=== PATIENT | male | born 1955 | race Caucasian/White ===

== ENCOUNTER 2017-07-22 12:14 | Emergency (ER) | payer MEDICARE ==
[~2017-07-22] VITALS: Ht 188 cm; Wt 111.1 kg
[~2017-07-22 12:14] MED LIST: ALBU8.5H8 INH; ASPI-496 PO; ASPI-621 PO; ASPI-650 PO; ASPI500P3 PO; AZIT500T5 PO; CEFD300C37 PO; DILT30TA33 PO; FLUT1DIS3 INH; METO25TA35 PO; NICO-486 TD; OXYC-302 PO; POLY119P4 PO; PRED10TA PO; PRED20TA PO; TIOT18CA INH
[2017-07-22] MEDS ORDERED: SODIUM CHLORIDE 0.9% 1,000 ML IV ONE (12:15)
[2017-07-22] MEDS ORDERED: METOPROLOL 1 MG/ML, 5ML IVPush PRN (12:30)
[2017-07-22] MEDS ORDERED: SODIUM CHLORIDE 0.9% 1,000ML IVBOLUS ONE (12:30)
[2017-07-22] MEDS ORDERED: SODIUM CHLORIDE FLUSH 10ML SYR IVF ONE (12:30)
[2017-07-22] MEDS ORDERED: PLEASE ENTER HEIGHT AND WEIGHT MC SCH (12:30)
[2017-07-22] MEDS ORDERED: METOPROLOL 1 MG/ML, 5ML ONE (12:37)
[2017-07-22 12:41] LABS: BASOPHILS # (AUTO) 0.04 x10^3/uL (0-0.1); BASOPHILS % (AUTO) 1 % (0-1); EOSINOPHILS # (AUTO) 0.18 x10^3/uL (0-0.4); EOSINOPHILS % (AUTO) 3 % (1-7); LYMPHOCYTES # (AUTO) 1.88 x10^3/uL (1-3.4); LYMPHOCYTES % (AUTO) 33 % (22-44); MD NO; MEAN CORPUSCULAR HEMOGLOBIN 29.5 pg (27.5-34.5); MEAN CORPUSCULAR HGB CONC 33.4 g/dL (33.2-36.2); MEAN CORPUSCULAR VOLUME 88.4 fL (81-97); MEAN PLATELET VOLUME 7.8 fL (7.4-10.4); MONOCYTES # (AUTO) 0.44 x10^3/uL (0.2-0.8); MONOCYTES % (AUTO) 8 % (2-9); NEUTROPHILS # (AUTO) 3.09 x10^3/uL (1.8-6.8); NEUTROPHILS % (AUTO) 55 % (42-75); PLATELET COUNT 230 x10^3/uL (130-400); RED BLOOD COUNT 5.09 x10^6/uL (4.38-5.82); RED CELL DISTRIBUTION WIDTH 14.6 % (9.4-14.8)
[2017-07-22 12:49] LABS: INTERNATIONAL NORMALIZED RATIO 1.03 (0.93-1.1); PROTHROMBIN TIME 10.7 Seconds (9.6-11.5)
[2017-07-22 12:52] LABS: ALBUMIN 3.8 g/dL (3.4-5.0); ANION GAP 8 mmol/L (5-15); CALCIUM 9.1 mg/dL (8.5-10.1); CHLORIDE 109 mmol/L (98-107); CREATININE 0.88 mg/dL (0.7-1.3)
[2017-07-22 12:57] LABS: TROPONIN I 0.016 ng/mL (0.000-0.045)
[2017-07-22 15:01] VITALS: BP 146/78
== END 2017-07-22 15:05 | disposition left against medical advice (07) ==
LOC: ED 14:59
DX: R07.2 Precordial pain (principal); I48.91 Unspecified atrial fibrillation; J44.9 Chronic obstructive pulmonary disease, unspecified; Z90.49 Acquired absence of other specified parts of digestive tract; I11.0 Hypertensive heart disease with heart failure; I50.9 Heart failure, unspecified; I25.2 Old myocardial infarction
CPT/HCPCS: 36415; 71045; 80048; 82040; 83880; 84484; 85025; 85610; 85730; 93005; 99285; J7030

== ENCOUNTER 2017-08-28 01:29 | Emergency (ER) | payer SELFPAY ==
[~2017-08-28] VITALS: Ht 188 cm; Wt 106.2 kg
[~2017-08-28 01:29] MED LIST changes: +ASPI-515 PO
[2017-08-28 01:30] VITALS: BP 167/85
== END 2017-08-28 03:40 | disposition home or self-care (01) ==
LOC: ED 01:42
DX: M25.571 Pain in right ankle and joints of right foot (principal); I50.9 Heart failure, unspecified; I25.2 Old myocardial infarction; J44.9 Chronic obstructive pulmonary disease, unspecified; I11.0 Hypertensive heart disease with heart failure; I25.10 Atherosclerotic heart disease of native coronary artery without angina pectoris; I48.91 Unspecified atrial fibrillation
CPT/HCPCS: 99284

== ENCOUNTER 2017-10-17 09:47 | Observation (INO) | payer MEDICARE ==
[~2017-10-17] VITALS: Ht 182.9 cm; Wt 108.9 kg
[2017-10-17] MEDS ORDERED: MIDAZOLAM 1 MG/ML, 5ML ONE (09:50)
[2017-10-17] MEDS ORDERED: SODIUM CHLORIDE FLUSH 10ML SYR IVF ONE (10:00)
[2017-10-17] MEDS ORDERED: NITROGLYCERIN SINGLE TAB 0.4 MG SL PRN (10:00)
[2017-10-17 10:17] LABS: BASOPHILS # (AUTO) 0.05 x10^3/uL (0-0.1); BASOPHILS % (AUTO) 1 % (0-1); EOSINOPHILS % (AUTO) 2 % (1-7); LYMPHOCYTES # (AUTO) 2.49 x10^3/uL (1-3.4); LYMPHOCYTES % (AUTO) 44 % (22-44); MD NO; MEAN CORPUSCULAR HEMOGLOBIN 30.1 pg (27.5-34.5); MEAN CORPUSCULAR HGB CONC 34.4 g/dL (33.2-36.2); MEAN CORPUSCULAR VOLUME 87.5 fL (81-97); MEAN PLATELET VOLUME 8.5 fL (7.4-10.4); MONOCYTES # (AUTO) 0.28 x10^3/uL (0.2-0.8); MONOCYTES % (AUTO) 5 % (2-9); NEUTROPHILS # (AUTO) 2.75 x10^3/uL (1.8-6.8); NEUTROPHILS % (AUTO) 49 % (42-75); PLATELET COUNT 168 x10^3/uL (130-400); RED BLOOD COUNT 4.93 x10^6/uL (4.38-5.82); RED CELL DISTRIBUTION WIDTH 14.9 % (9.4-14.8)
[2017-10-17] MEDS ORDERED: NITROGLYCERIN SINGLE TAB 0.4 MG SL ONE (10:26)
[2017-10-17 10:29] LABS: ALBUMIN 3.8 g/dL (3.4-5.0); ANION GAP 7 mmol/L (5-15); CALCIUM 8.6 mg/dL (8.5-10.1); CHLORIDE 112 mmol/L (98-107)
[2017-10-17 10:36] LABS: ALANINE AMINOTRANSFERASE 26 U/L (12-78); ALKALINE PHOSPHATASE 113 U/L (45-117); BILIRUBIN,TOTAL 0.4 mg/dL (0.2-1.0); CREATININE 0.71 mg/dL (0.7-1.3); TOTAL PROTEIN 7.8 g/dL (6.4-8.2); TROPONIN I 0.063 ng/mL (0.000-0.045)
[2017-10-17] MEDS ORDERED: METOPROLOL PO (11:54)
[2017-10-17] MEDS ORDERED: ONDANSETRON 2MG/ML, 2ML IVPush PRN (12:30)
[2017-10-17] MEDS ORDERED: ACETAMINOPHEN 325 MG TABLET PO PRN (12:30)
[2017-10-17] MEDS ORDERED: KETOROLAC 30 MG/1 ML IV PRN (12:30)
[2017-10-17] MEDS ORDERED: hydrALAzine 20 MG/ML, 1ML IVPush PRN (12:30)
[2017-10-17] MEDS ORDERED: ENOXAPARIN 40 MG/0.4 ML SQ SCH (12:30)
[2017-10-17] MEDS ORDERED: BACLOFEN 10 MG TABLET PO PRN (12:30)
[2017-10-17 14:00] VITALS: BP 157/85
[2017-10-17] MEDS ORDERED: NITROGLYCERIN 0.4 MG BOTTLE (25 TABS) SL PRN (14:00)
[2017-10-17] MEDS ORDERED: METOPROLOL TARTRATE 25 MG TABLET PO SCH (18:00)
[2017-10-18] MEDS ORDERED: ASPIRIN 81 MG TABLET EC PO SCH (09:00)
== END 2017-10-17 15:21 | disposition left against medical advice (07) ==
LOC: EDBD → MERGE 09:47 → ED 10:23 → EDIP 10:49 → 5SO 14:13
PROVIDERS: ADMIT Internal Medicine; ATTEND Internal Medicine
DX: R07.89 Other chest pain (principal); I11.0 Hypertensive heart disease with heart failure; I50.9 Heart failure, unspecified; J44.9 Chronic obstructive pulmonary disease, unspecified; I48.0 Paroxysmal atrial fibrillation; F17.210 Nicotine dependence, cigarettes, uncomplicated; I25.10 Atherosclerotic heart disease of native coronary artery without angina pectoris; I25.2 Old myocardial infarction; I34.0 Nonrheumatic mitral (valve) insufficiency; Z82.49 Family history of ischemic heart disease and other diseases of the circulatory system; Z91.19 Patient's noncompliance with other medical treatment and regimen
CPT/HCPCS: 36415; 71045; 80053; 84484; 85025; 93005; 96372; 99285; G0378; J1650; J2250

== ENCOUNTER 2017-10-19 20:10 | Emergency (ER) | payer SELFPAY ==
[~2017-10-19] VITALS: Ht 182.9 cm; Wt 108.0 kg
[~2017-10-19 20:10] MED LIST changes: +METOPROLOL PO
[2017-10-19] MEDS ORDERED: HYDROmorphone 1 MG/ML, 1ML IV ONE (20:30)
[2017-10-19] MEDS ORDERED: ASPIRIN 81 MG TABLET CHEW PO ONE (20:30)
[2017-10-19 20:55] LABS: BASOPHILS # (AUTO) 0.03 x10^3/uL (0-0.1); BASOPHILS % (AUTO) 1 % (0-1); EOSINOPHILS # (AUTO) 0.13 x10^3/uL (0-0.4); EOSINOPHILS % (AUTO) 3 % (1-7); LYMPHOCYTES # (AUTO) 2.28 x10^3/uL (1-3.4); LYMPHOCYTES % (AUTO) 44 % (22-44); MD NO; MEAN CORPUSCULAR HEMOGLOBIN 30.2 pg (27.5-34.5); MEAN CORPUSCULAR HGB CONC 34.4 g/dL (33.2-36.2); MEAN CORPUSCULAR VOLUME 87.8 fL (81-97); MEAN PLATELET VOLUME 8.7 fL (7.4-10.4); MONOCYTES # (AUTO) 0.37 x10^3/uL (0.2-0.8); MONOCYTES % (AUTO) 7 % (2-9); NEUTROPHILS # (AUTO) 2.41 x10^3/uL (1.8-6.8); NEUTROPHILS % (AUTO) 46 % (42-75); PLATELET COUNT 153 x10^3/uL (130-400); RED BLOOD COUNT 4.97 x10^6/uL (4.38-5.82)
[2017-10-19 21:05] LABS: INTERNATIONAL NORMALIZED RATIO 0.95 (0.93-1.1); PROTHROMBIN TIME 9.8 Seconds (9.6-11.5)
[2017-10-19 21:06] LABS: ALBUMIN 3.5 g/dL (3.4-5.0); ANION GAP 4 mmol/L (5-15); CALCIUM 8.8 mg/dL (8.5-10.1); CHLORIDE 116 mmol/L (98-107); CREATININE 0.71 mg/dL (0.7-1.3)
[2017-10-19 21:10] LABS: TROPONIN I 0.029 ng/mL (0.000-0.045)
[2017-10-19 21:15] VITALS: BP 93/53
[2017-10-19] MEDS ORDERED: APIXABAN 5 MG TABLET PO ONE (21:30)
[2017-10-19] MEDS ORDERED: APIXABAN 5 MG TABLET ONE (21:46)
[2017-10-19] MEDS ORDERED: ONDANSETRON 2MG/ML, 2ML IVPush PRN (22:00)
[2017-10-19] MEDS ORDERED: TRAZODONE 50MG TABLET PO PRN (22:00)
[2017-10-19] MEDS ORDERED: BUTALB/APAP/CAFFEINE 50MG/325MG/40MG PO PRN (22:00)
[2017-10-19] MEDS ORDERED: ACETAMINOPHEN 325 MG TABLET PO PRN (22:00)
[2017-10-19] MEDS ORDERED: hydrALAzine 20 MG/ML, 1ML IVPush PRN (22:00)
[2017-10-19] MEDS ORDERED: DOCUSATE 100 MG CAPSULE PO PRN (22:00)
[2017-10-20] MEDS ORDERED: ASPIRIN 81 MG TABLET EC PO SCH (06:00)
[2017-10-20] MEDS ORDERED: METOPROLOL TARTRATE 50 MG TABLET PO SCH (06:00)
[2017-10-20] MEDS ORDERED: ENOXAPARIN 40 MG/0.4 ML SQ SCH (10:00)
== END 2017-10-19 22:40 | disposition left against medical advice (07) ==
LOC: ED 21:47
DX: I20.0 Unstable angina (principal); I48.2 Chronic atrial fibrillation; I11.0 Hypertensive heart disease with heart failure; I50.9 Heart failure, unspecified; I25.2 Old myocardial infarction; J43.9 Emphysema, unspecified; Z90.49 Acquired absence of other specified parts of digestive tract
CPT/HCPCS: 36415; 71045; 80048; 82040; 83880; 84484; 85025; 85610; 85730; 93005; 99285

== ENCOUNTER 2017-11-23 02:57 | Emergency (ER) | payer OTHER ==
[~2017-11-23] VITALS: Ht 182.9 cm; Wt 115.0 kg
[2017-11-23 03:00] VITALS: BP 114/63
== END 2017-11-23 03:44 | disposition left against medical advice (07) ==
LOC: ED 03:38
DX: R07.9 Chest pain, unspecified (principal); Z53.21 Procedure and treatment not carried out due to patient leaving prior to being seen by health care provider
CPT/HCPCS: 93005; 99281

== ENCOUNTER 2017-11-26 18:02 | Emergency (ER) | payer OTHER ==
[~2017-11-26] VITALS: Ht 188 cm; Wt 113.1 kg
[2017-11-26 18:07] VITALS: BP 133/71
[2017-11-26 18:43] LABS: BASOPHILS # (AUTO) 0.04 x10^3/uL (0-0.1); BASOPHILS % (AUTO) 1 % (0-1); EOSINOPHILS % (AUTO) 1 % (1-7); LYMPHOCYTES # (AUTO) 2.46 x10^3/uL (1-3.4); LYMPHOCYTES % (AUTO) 32 % (22-44); MD NO; MEAN CORPUSCULAR HEMOGLOBIN 30.6 pg (27.5-34.5); MEAN CORPUSCULAR HGB CONC 34.2 g/dL (33.2-36.2); MEAN CORPUSCULAR VOLUME 89.5 fL (81-97); MEAN PLATELET VOLUME 8.4 fL (7.4-10.4); MONOCYTES # (AUTO) 0.38 x10^3/uL (0.2-0.8); MONOCYTES % (AUTO) 5 % (2-9); NEUTROPHILS # (AUTO) 4.66 x10^3/uL (1.8-6.8); NEUTROPHILS % (AUTO) 61 % (42-75); PLATELET COUNT 223 x10^3/uL (130-400); RED BLOOD COUNT 4.97 x10^6/uL (4.38-5.82); RED CELL DISTRIBUTION WIDTH 15.3 % (9.4-14.8)
[2017-11-26 18:53] LABS: ANION GAP 9 mmol/L (5-15); CALCIUM 9.1 mg/dL (8.5-10.1); CHLORIDE 110 mmol/L (98-107); CREATININE 0.93 mg/dL (0.7-1.3)
[2017-11-26 18:54] LABS: ALANINE AMINOTRANSFERASE 21 U/L (12-78); ALBUMIN 3.8 g/dL (3.4-5.0)
[2017-11-26 18:56] LABS: ALKALINE PHOSPHATASE 112 U/L (45-117); BILIRUBIN,TOTAL 0.4 mg/dL (0.2-1.0)
== END 2017-11-26 19:23 ==
LOC: ED 19:17
DX: R10.9 Unspecified abdominal pain (principal); R05 Cough
CPT/HCPCS: 36415; 80053; 83690; 85025; 99284

== ENCOUNTER 2018-01-05 17:53 | Emergency (ER) | payer OTHER ==
[~2018-01-05] VITALS: Ht 188 cm; Wt 105.0 kg
[2018-01-05] MEDS ORDERED: ASPIRIN 81 MG TABLET CHEW ONE (18:18)
[2018-01-05] MEDS ORDERED: DILTIAZEM 5 MG/ML, 5ML ONE (18:18)
[2018-01-05] MEDS ORDERED: SODIUM CHLORIDE FLUSH 10ML SYR IVF ONE (18:30)
[2018-01-05] MEDS ORDERED: DILTIAZEM 5 MG/ML, 5ML IVPush ONE (18:30)
[2018-01-05] MEDS ORDERED: ASPIRIN 81 MG TABLET CHEW PO ONE (18:30)
[2018-01-05 18:33] LABS: BASOPHILS # (AUTO) 0.04 x10^3/uL (0-0.1); BASOPHILS % (AUTO) 1 % (0-1); EOSINOPHILS % (AUTO) 2 % (1-7); LYMPHOCYTES # (AUTO) 2.93 x10^3/uL (1-3.4); LYMPHOCYTES % (AUTO) 49 % (22-44); MD NO; MEAN CORPUSCULAR HEMOGLOBIN 30.6 pg (27.5-34.5); MEAN CORPUSCULAR HGB CONC 34.1 g/dL (33.2-36.2); MEAN CORPUSCULAR VOLUME 89.7 fL (81-97); MEAN PLATELET VOLUME 8.8 fL (7.4-10.4); MONOCYTES % (AUTO) 7 % (2-9); NEUTROPHILS # (AUTO) 2.57 x10^3/uL (1.8-6.8); NEUTROPHILS % (AUTO) 43 % (42-75); PLATELET COUNT 175 x10^3/uL (130-400); RED BLOOD COUNT 5.13 x10^6/uL (4.38-5.82); RED CELL DISTRIBUTION WIDTH 14.5 % (9.4-14.8)
[2018-01-05 18:40] LABS: INTERNATIONAL NORMALIZED RATIO 0.96 (0.93-1.1)
[2018-01-05 18:43] LABS: ALANINE AMINOTRANSFERASE 29 U/L (12-78); ALBUMIN 3.6 g/dL (3.4-5.0); ANION GAP 8 mmol/L (5-15); CHLORIDE 113 mmol/L (98-107); CREATININE 0.86 mg/dL (0.7-1.3)
[2018-01-05 18:46] LABS: ALKALINE PHOSPHATASE 111 U/L (45-117); BILIRUBIN,TOTAL 0.3 mg/dL (0.2-1.0); TOTAL PROTEIN 7.9 g/dL (6.4-8.2); TROPONIN I 0.018 ng/mL (0.000-0.045)
[2018-01-05] MEDS ORDERED: DILTIAZEM 60 MG TABLET ONE (18:52)
[2018-01-05 18:55] VITALS: BP 103/64
[2018-01-05] MEDS ORDERED: METO50TA82 PO (18:55)
[2018-01-05] MEDS ORDERED: DILTIAZEM 60 MG TABLET PO ONE (19:00)
== END 2018-01-05 19:49 | disposition left against medical advice (07) ==
LOC: ED 18:16
DX: I48.0 Paroxysmal atrial fibrillation (principal); R07.2 Precordial pain; F11.10 Opioid abuse, uncomplicated; Z72.0 Tobacco use; I50.9 Heart failure, unspecified; I25.10 Atherosclerotic heart disease of native coronary artery without angina pectoris; J44.9 Chronic obstructive pulmonary disease, unspecified; I11.0 Hypertensive heart disease with heart failure; I25.2 Old myocardial infarction; F17.200 Nicotine dependence, unspecified, uncomplicated
CPT/HCPCS: 36415; 71045; 80053; 83880; 84484; 85025; 85610; 85730; 93005; 96374

== ENCOUNTER 2018-01-17 18:09 | Inpatient (IN) | payer MEDICARE, OTHER ==
[~2018-01-17] VITALS: Ht 188 cm; Wt 115.8 kg
[~2018-01-17 18:09] MED LIST changes: -ASPI-621 PO; +ASPI81TA45 PO; +METO50TA82 PO
[2018-01-17] MEDS ORDERED: HYDROmorphone 1 MG/ML, 1ML IV ONE (19:30)
[2018-01-17] MEDS ORDERED: ONDANSETRON 2MG/ML, 2ML IVPush ONE (19:30)
[2018-01-17] MEDS ORDERED: ASPIRIN 81 MG TABLET CHEW PO ONE (19:30)
[2018-01-17] MEDS ORDERED: SODIUM CHLORIDE FLUSH 10ML SYR IVF ONE (19:30)
[2018-01-17] MEDS ORDERED: HYDROmorphone 2 MG/ML, 1ML ONE (19:34)
[2018-01-17] MEDS ORDERED: ONDANSETRON 2MG/ML, 2ML ONE (19:34)
[2018-01-17 19:50] LABS: BASOPHILS # (AUTO) 0.04 x10^3/uL (0-0.1); BASOPHILS % (AUTO) 1 % (0-1); EOSINOPHILS % (AUTO) 2 % (1-7); LYMPHOCYTES # (AUTO) 2.36 x10^3/uL (1-3.4); LYMPHOCYTES % (AUTO) 40 % (22-44); MD NO; MEAN CORPUSCULAR HEMOGLOBIN 30.6 pg (27.5-34.5); MEAN CORPUSCULAR HGB CONC 34.3 g/dL (33.2-36.2); MEAN CORPUSCULAR VOLUME 89.1 fL (81-97); MEAN PLATELET VOLUME 8.2 fL (7.4-10.4); MONOCYTES # (AUTO) 0.35 x10^3/uL (0.2-0.8); MONOCYTES % (AUTO) 6 % (2-9); NEUTROPHILS # (AUTO) 3.08 x10^3/uL (1.8-6.8); NEUTROPHILS % (AUTO) 52 % (42-75); PLATELET COUNT 193 x10^3/uL (130-400); RED BLOOD COUNT 4.85 x10^6/uL (4.38-5.82); RED CELL DISTRIBUTION WIDTH 14.8 % (9.4-14.8)
[2018-01-17 20:02] LABS: ALBUMIN 3.8 g/dL (3.4-5.0); ANION GAP 9 mmol/L (5-15); CALCIUM 8.9 mg/dL (8.5-10.1); CHLORIDE 113 mmol/L (98-107); CREATININE 0.78 mg/dL (0.7-1.3)
[2018-01-17 20:06] LABS: TROPONIN I < 0.015 ng/mL (0.000-0.045)
[2018-01-17] MEDS ORDERED: NITROGLYCERIN 0.4 MG BOTTLE (25 TABS) SL PRN (21:30)
[2018-01-17] MEDS ORDERED: BISACODYL 10 MG SUPP PR PRN (21:30)
[2018-01-17] MEDS ORDERED: ONDANSETRON ODT 4 MG PO PRN (21:30)
[2018-01-17] MEDS ORDERED: METOPROLOL TARTRATE 50 MG TABLET PO SCH (21:30)
[2018-01-17] MEDS ORDERED: POLYETHYLENE GLYCOL 17 GM PACKET PO PRN (21:30)
[2018-01-17] MEDS ORDERED: ACETAMINOPHEN 325 MG TABLET PO PRN (21:30)
[2018-01-17] MEDS ORDERED: SODIUM CHLORIDE FLUSH 10ML SYR IVF SCH (21:30)
[2018-01-17 22:00] VITALS: BP 114/62
[2018-01-17 22:04] LABS: FREE T4 (FREE THYROXINE) 0.85 ng/dL (0.76-1.46); THYROID STIMULATING HORMONE 1.15 mIU/L (0.358-3.740)
[2018-01-17] MEDS: HEPARIN 5,000 UNITS/ML, 1ML SQ SCH (22:29)
[2018-01-18 02:02] VITALS: BP 124/67
[2018-01-18 02:13] LABS: BASOPHILS # (AUTO) 0.02 x10^3/uL (0-0.1); BASOPHILS % (AUTO) 0 % (0-1); EOSINOPHILS # (AUTO) 0.02 x10^3/uL (0-0.4); EOSINOPHILS % (AUTO) 0 % (1-7); LYMPHOCYTES % (AUTO) 16 % (22-44); MD NO; MEAN CORPUSCULAR HEMOGLOBIN 30.5 pg (27.5-34.5); MEAN CORPUSCULAR HGB CONC 34.2 g/dL (33.2-36.2); MEAN CORPUSCULAR VOLUME 89.1 fL (81-97); MEAN PLATELET VOLUME 8.5 fL (7.4-10.4); MONOCYTES # (AUTO) 0.24 x10^3/uL (0.2-0.8); MONOCYTES % (AUTO) 3 % (2-9); NEUTROPHILS % (AUTO) 81 % (42-75); PLATELET COUNT 186 x10^3/uL (130-400); RED BLOOD COUNT 4.68 x10^6/uL (4.38-5.82); RED CELL DISTRIBUTION WIDTH 14.6 % (9.4-14.8)
[2018-01-18 02:24] LABS: ANION GAP 4 mmol/L (5-15); CALCIUM 8.9 mg/dL (8.5-10.1); CHLORIDE 110 mmol/L (98-107)
[2018-01-18 02:25] LABS: ALANINE AMINOTRANSFERASE 22 U/L (12-78); ALBUMIN 3.8 g/dL (3.4-5.0); CHOLESTEROL, TOTAL 127 mg/dL (140-239); TRIGLYCERIDES 143 mg/dL (50-200); VLDL CHOLESTEROL 29 mg/dL (0-25)
[2018-01-18 02:26] VITALS: BP 105/64
[2018-01-18] MEDS: NITROGLYCERIN 0.4 MG BOTTLE (25 TABS) SL PRN ×2 (02:26→02:33)
[2018-01-18 02:27] LABS: ALKALINE PHOSPHATASE 100 U/L (45-117); BILIRUBIN,TOTAL 0.5 mg/dL (0.2-1.0); CHOL/HDL RATIO 5.1; HDL CHOL % 20 % (26-37); HDL CHOLESTEROL (DIRECT) 25 mg/dL (40-60); LDL CHOLESTEROL,CALCULATED 73 mg/dL (54-169); LDL/HDL RATIO 2.9 (0.5-3.0); TOTAL PROTEIN 7.5 g/dL (6.4-8.2)
[2018-01-18] MEDS ORDERED: NITROGLYCERIN 0.4 MG/SPRAY SL PRN (02:30)
[2018-01-18 02:32] VITALS: BP 119/67
[2018-01-18 02:36] VITALS: BP 112/61
[2018-01-18 02:42] LABS: TROPONIN I < 0.015 ng/mL (0.000-0.045)
[2018-01-18] MEDS ORDERED: KETOROLAC 30 MG/1 ML IVPush ONE (03:00)
[2018-01-18] MEDS: HEPARIN 5,000 UNITS/ML, 1ML SQ SCH (05:45)
[2018-01-18 07:04] VITALS: BP 97/50
[2018-01-18] MEDS ORDERED: SENNA/DOCUSATE TABLET PO SCH (09:00)
[2018-01-18] MEDS ORDERED: ASPIRIN 81 MG TABLET EC PO SCH (09:00)
== END 2018-01-18 07:35 | disposition left against medical advice (07) | DRG 309 ==
LOC: ED 19:44 → EDIP 20:43 → 5SO 22:00
PROVIDERS: ADMIT Hospitalist; ATTEND Hospitalist
DX: I48.0 Paroxysmal atrial fibrillation (principal); D68.69 Other thrombophilia; I25.9 Chronic ischemic heart disease, unspecified; E66.9 Obesity, unspecified; I10 Essential (primary) hypertension; I34.0 Nonrheumatic mitral (valve) insufficiency; R07.2 Precordial pain; Z53.21 Procedure and treatment not carried out due to patient leaving prior to being seen by health care provider; J44.9 Chronic obstructive pulmonary disease, unspecified; Z82.49 Family history of ischemic heart disease and other diseases of the circulatory system; Z87.891 Personal history of nicotine dependence; Z90.49 Acquired absence of other specified parts of digestive tract; Z88.5 Allergy status to narcotic agent; Z88.7 Allergy status to serum and vaccine; Z88.8 Allergy status to other drugs, medicaments and biological substances; Z68.32 Body mass index [BMI] 32.0-32.9, adult
CPT/HCPCS: 36415; 71045; 80048; 80053; 80061; 82040; 84439; 84443; 84484; 85025; 93005; 96374; 96375; 99285; G0378; J1170; J1644; J1885; J2405; Q0162

== ENCOUNTER 2018-01-26 17:13 | Emergency (ER) | payer MEDICARE ==
[~2018-01-26] VITALS: Ht 188 cm; Wt 115.0 kg
[~2018-01-26 17:13] MED LIST changes: +ASPI-621 PO; -ASPI81TA45 PO
[2018-01-26 17:42] LABS: BASOPHILS # (AUTO) 0.03 x10^3/uL (0-0.1); BASOPHILS % (AUTO) 0 % (0-1); EOSINOPHILS # (AUTO) 0.08 x10^3/uL (0-0.4); EOSINOPHILS % (AUTO) 1 % (1-7); LYMPHOCYTES # (AUTO) 1.98 x10^3/uL (1-3.4); LYMPHOCYTES % (AUTO) 28 % (22-44); MD NO; MEAN CORPUSCULAR HEMOGLOBIN 30.6 pg (27.5-34.5); MEAN CORPUSCULAR HGB CONC 34.4 g/dL (33.2-36.2); MEAN CORPUSCULAR VOLUME 88.9 fL (81-97); MEAN PLATELET VOLUME 8.7 fL (7.4-10.4); MONOCYTES # (AUTO) 0.38 x10^3/uL (0.2-0.8); MONOCYTES % (AUTO) 5 % (2-9); NEUTROPHILS # (AUTO) 4.51 x10^3/uL (1.8-6.8); NEUTROPHILS % (AUTO) 65 % (42-75); PLATELET COUNT 187 x10^3/uL (130-400); RED BLOOD COUNT 4.93 x10^6/uL (4.38-5.82); RED CELL DISTRIBUTION WIDTH 14.8 % (9.4-14.8)
[2018-01-26 17:52] LABS: ALANINE AMINOTRANSFERASE 26 U/L (12-78); ALBUMIN 3.6 g/dL (3.4-5.0); ANION GAP 8 mmol/L (5-15); CALCIUM 8.6 mg/dL (8.5-10.1); CHLORIDE 112 mmol/L (98-107); CREATININE 0.79 mg/dL (0.7-1.3)
[2018-01-26 17:55] LABS: ALKALINE PHOSPHATASE 97 U/L (45-117); BILIRUBIN,TOTAL 0.3 mg/dL (0.2-1.0); TOTAL PROTEIN 7.7 g/dL (6.4-8.2); TROPONIN I 0.034 ng/mL (0.000-0.045)
[2018-01-26] MEDS ORDERED: FUROSEMIDE 40 MG TABLET PO ONE (19:00)
[2018-01-26] MEDS ORDERED: FUROSEMIDE 40 MG/4 ML ONE (19:16)
[2018-01-26] MEDS ORDERED: ACETAMINOPHEN 325 MG TABLET ONE (19:16)
[2018-01-26] MEDS ORDERED: FUROSEMIDE 20 MG TABLET ONE (19:18)
[2018-01-26 19:25] VITALS: BP 128/73
[2018-01-26] MEDS ORDERED: ACETAMINOPHEN 325 MG TABLET PO ONE (19:30)
== END 2018-01-26 20:07 | disposition home or self-care (01) ==
LOC: ED 17:22
DX: I48.0 Paroxysmal atrial fibrillation (principal); R07.2 Precordial pain; R94.31 Abnormal electrocardiogram [ECG] [EKG]; I50.9 Heart failure, unspecified; I11.0 Hypertensive heart disease with heart failure; I25.10 Atherosclerotic heart disease of native coronary artery without angina pectoris; J44.9 Chronic obstructive pulmonary disease, unspecified; I25.2 Old myocardial infarction
CPT/HCPCS: 36415; 71045; 80053; 83880; 84484; 85025; 93005; 99284

== ENCOUNTER 2018-02-03 04:13 | Inpatient (IN) | payer MEDICARE ==
[~2018-02-03] VITALS: Ht 188 cm; Wt 113.0 kg
[~2018-02-03 04:13] MED LIST changes: -ASPI-621 PO; +ASPI81TA45 PO
[2018-02-03] MEDS ORDERED: ASPIRIN 81 MG TABLET CHEW PO ONE (04:30)
[2018-02-03] MEDS ORDERED: ASPIRIN 81 MG TABLET CHEW ONE (04:33)
[2018-02-03 05:29] LABS: BASOPHILS # (AUTO) 0.03 x10^3/uL (0-0.1); BASOPHILS % (AUTO) 0 % (0-1); EOSINOPHILS # (AUTO) 0.07 x10^3/uL (0-0.4); EOSINOPHILS % (AUTO) 1 % (1-7); LYMPHOCYTES # (AUTO) 2.13 x10^3/uL (1-3.4); LYMPHOCYTES % (AUTO) 25 % (22-44); MD NO; MEAN CORPUSCULAR HEMOGLOBIN 29.7 pg (27.5-34.5); MEAN CORPUSCULAR HGB CONC 33.3 g/dL (33.2-36.2); MEAN CORPUSCULAR VOLUME 89.2 fL (81-97); MEAN PLATELET VOLUME 8.6 fL (7.4-10.4); MONOCYTES # (AUTO) 0.47 x10^3/uL (0.2-0.8); MONOCYTES % (AUTO) 6 % (2-9); NEUTROPHILS # (AUTO) 5.74 x10^3/uL (1.8-6.8); NEUTROPHILS % (AUTO) 68 % (42-75); PLATELET COUNT 178 x10^3/uL (130-400); RED BLOOD COUNT 5.01 x10^6/uL (4.38-5.82); RED CELL DISTRIBUTION WIDTH 14.4 % (9.4-14.8)
[2018-02-03 05:40] LABS: PROTHROMBIN TIME 10.6 Seconds (9.6-11.5)
[2018-02-03 05:44] LABS: ALBUMIN 3.6 g/dL (3.4-5.0); ANION GAP 9 mmol/L (5-15); CHLORIDE 110 mmol/L (98-107)
[2018-02-03 05:50] LABS: ALANINE AMINOTRANSFERASE 25 U/L (12-78); ALKALINE PHOSPHATASE 120 U/L (45-117); BILIRUBIN,TOTAL 0.4 mg/dL (0.2-1.0); CREATININE 0.88 mg/dL (0.7-1.3); FREE T4 (FREE THYROXINE) 0.75 ng/dL (0.76-1.46); TOTAL PROTEIN 7.5 g/dL (6.4-8.2); TROPONIN I 0.032 ng/mL (0.000-0.045)
[2018-02-03] MEDS ORDERED: METOPROLOL 1 MG/ML, 5ML IVPush PRN (06:30)
[2018-02-03 09:07] VITALS: BP 117/54
[2018-02-03] MEDS ORDERED: ENOXAPARIN 40 MG/0.4 ML SQ SCH (10:30)
[2018-02-03] MEDS ORDERED: ACETAMINOPHEN 325 MG TABLET PO PRN (10:30)
[2018-02-03] MEDS ORDERED: KETOROLAC 30 MG/1 ML IV PRN (10:30)
[2018-02-03] MEDS ORDERED: NITROGLYCERIN 0.4 MG/SPRAY SL PRN (10:30)
[2018-02-03] MEDS ORDERED: NITROGLYCERIN 0.4 MG BOTTLE (25 TABS) SL PRN (10:30)
[2018-02-03] MEDS ORDERED: BISACODYL 10 MG SUPP PR PRN (10:30)
[2018-02-03 11:47] LABS: TROPONIN I 0.039 ng/mL (0.000-0.045)
[2018-02-03 12:15] VITALS: BP 103/74
[2018-02-03] MEDS ORDERED: ALBUTEROL/IPRATROPIUM 2.5MG/0.5MG, 3 ML NPPB PRN (12:30)
[2018-02-03] MEDS ORDERED: PANTOPROZOLE 40MG TABLET ONE (13:16)
[2018-02-03 13:21] VITALS: BP 102/69
[2018-02-03 13:27] VITALS: BP 95/68
[2018-02-03 13:27] LABS: TROPONIN I 0.036 ng/mL (0.000-0.045)
[2018-02-03] MEDS ORDERED: MAALOX/HYOSCYAMINE/LIDOCAINE 45 ML BTL PO ONE (13:30)
[2018-02-03] MEDS ORDERED: ASPI-650 PO (13:37)
[2018-02-03] MEDS ORDERED: PANTOPRAZOLE 20MG TABLET PO SCH (17:00)
[2018-02-03] MEDS ORDERED: METOPROLOL TARTRATE 50 MG TABLET PO SCH ×2 (18:27→21:00)
[2018-02-03] MEDS ORDERED: METOPROLOL TARTRATE 50 MG TABLET ONE (18:29)
[2018-02-03] MEDS ORDERED: SODIUM CHLORIDE FLUSH 10ML SYR IVF SCH (21:00)
[2018-02-04] MEDS ORDERED: ASPIRIN 325 MG TABLET EC PO SCH (06:00)
[2018-02-04] MEDS ORDERED: ASPIRIN 81 MG TABLET EC PO SCH (09:00)
== END 2018-02-03 18:53 | disposition left against medical advice (07) | DRG 191 ==
LOC: ED 04:42 → EDIP 08:02 → 5SO 09:00
PROVIDERS: ADMIT Internal Medicine; ATTEND Internal Medicine
DX: J44.1 Chronic obstructive pulmonary disease with (acute) exacerbation (principal); I16.9 Hypertensive crisis, unspecified; F17.210 Nicotine dependence, cigarettes, uncomplicated; I11.0 Hypertensive heart disease with heart failure; I25.10 Atherosclerotic heart disease of native coronary artery without angina pectoris; I25.2 Old myocardial infarction; I34.0 Nonrheumatic mitral (valve) insufficiency; R07.2 Precordial pain; I48.0 Paroxysmal atrial fibrillation; I50.9 Heart failure, unspecified; Z82.49 Family history of ischemic heart disease and other diseases of the circulatory system; Z87.11 Personal history of peptic ulcer disease
CPT/HCPCS: 36415; 71045; 80053; 84439; 84443; 84484; 85025; 85610; 85730; 93005; 99285; G0378; J1650; J1885

== ENCOUNTER 2018-03-19 13:08 | Emergency (ER) | payer MEDICARE ==
[~2018-03-19] VITALS: Ht 188 cm; Wt 114.0 kg
[2018-03-19 13:25] VITALS: BP 110/60
[2018-03-19] MEDS ORDERED: HYDROcodone/APAP 5/325 TABLET PO ONE (13:30)
[2018-03-19] MEDS ORDERED: HYDROcodone/APAP 5/325 TABLET ONE (13:34)
--- NOTE | 2018-03-19 13:37 | NUR ---
PT MEDICATED. PT TO XRAY AT THIS TIME.
--- NOTE | 2018-03-19 15:40 | NUR ---
Patient given discharge instructions and they have confirmed that they understand the instructions. Patient ambulatory with steady gait with crutches.
== END 2018-03-19 15:40 | disposition home or self-care (01) ==
LOC: ED 14:01
DX: S83.92XA Sprain of unspecified site of left knee, initial encounter (principal); I48.91 Unspecified atrial fibrillation; J44.9 Chronic obstructive pulmonary disease, unspecified; I11.0 Hypertensive heart disease with heart failure; I50.9 Heart failure, unspecified; X50.1XXA Overexertion from prolonged static or awkward postures, initial encounter; Y93.01 Activity, walking, marching and hiking; Y92.59 Other trade areas as the place of occurrence of the external cause; Y99.8 Other external cause status
CPT/HCPCS: 29505; 99283

== ENCOUNTER 2018-03-28 15:49 | Emergency (ER) | payer MEDICARE ==
[~2018-03-28] VITALS: Ht 188 cm; Wt 136.6 kg
[2018-03-28] MEDS ORDERED: ASPIRIN 81 MG TABLET CHEW ONE (16:22)
[2018-03-28] MEDS ORDERED: DILTIAZEM 5 MG/ML, 5ML ONE (16:22)
[2018-03-28] MEDS ORDERED: ASPIRIN 81 MG TABLET CHEW PO ONE (16:30)
[2018-03-28] MEDS ORDERED: DILTIAZEM 5 MG/ML, 5ML IV ONE (16:30)
[2018-03-28 16:31] LABS: BASOPHILS # (AUTO) 0.02 x10^3/uL (0-0.1); BASOPHILS % (AUTO) 0 % (0-1); EOSINOPHILS # (AUTO) 0.07 x10^3/uL (0-0.4); EOSINOPHILS % (AUTO) 1 % (1-7); LYMPHOCYTES # (AUTO) 2.51 x10^3/uL (1-3.4); LYMPHOCYTES % (AUTO) 36 % (22-44); MD NO; MEAN CORPUSCULAR HEMOGLOBIN 30.7 pg (27.5-34.5); MEAN CORPUSCULAR HGB CONC 34.1 g/dL (33.2-36.2); MEAN CORPUSCULAR VOLUME 90.1 fL (81-97); MEAN PLATELET VOLUME 8.3 fL (7.4-10.4); MONOCYTES # (AUTO) 0.36 x10^3/uL (0.2-0.8); MONOCYTES % (AUTO) 5 % (2-9); NEUTROPHILS # (AUTO) 4.07 x10^3/uL (1.8-6.8); NEUTROPHILS % (AUTO) 58 % (42-75); PLATELET COUNT 221 x10^3/uL (130-400); RED BLOOD COUNT 5.36 x10^6/uL (4.38-5.82); RED CELL DISTRIBUTION WIDTH 14.6 % (9.4-14.8)
[2018-03-28] MEDS: DILTIAZEM 125 MG in DEXTROSE 5% 100 ML IV SCH ×2 (16:37→22:59)
--- NOTE | 2018-03-28 16:37 | NUR ---
CARDIZEM 10MG IVP GIVEN. DILTIAZEM DRIP STARTED AT 10MG PER HOUR. WILL CONTINUE TO MONITOR.
[2018-03-28 16:41] LABS: INTERNATIONAL NORMALIZED RATIO 0.97 (0.93-1.1); PROTHROMBIN TIME 10.3 Seconds (9.6-11.5)
[2018-03-28 16:42] LABS: ALBUMIN 4.2 g/dL (3.4-5.0); ANION GAP 5 mmol/L (5-15); CALCIUM 10.3 mg/dL (8.5-10.1); CHLORIDE 107 mmol/L (98-107); CREATININE 0.85 mg/dL (0.7-1.3)
[2018-03-28 16:46] LABS: TROPONIN I 0.015 ng/mL (0.000-0.045)
--- NOTE | 2018-03-28 17:44 | NUR ---
PATIENT WANTED TO LEAVE. NOTIFIED DR. GONZALEZ THAT PATIENT DID NOT WANT TO BE ADMITTED TO HOSPITAL AND THAT HE WANTED TO LEAVE. AMA PAPERWORK PRINTED BY DR. GONZALEZ AND PATIENT SIGNED. DR. GONZALEZ EXPLAINED RISKS OF LEAVING WITH PATIENT. PATIENT AWARE. PATIENT STATES HE WILL FOLLOW-UP WITH HIS PCP AT [facility].
[2018-03-28 22:55] VITALS: BP 120/81
[2018-03-29] MEDS ORDERED: DILTIAZEM 125 MG in SODIUM CHLORIDE 0.9% 100 ML IV SCH
[2018-03-29] MEDS ORDERED: NITROGLYCERIN 0.4 MG/SPRAY SL PRN
[2018-03-29] MEDS ORDERED: NITROGLYCERIN 0.4 MG BOTTLE (25 TABS) SL PRN
== END 2018-03-28 17:44 | disposition left against medical advice (07) ==
LOC: ED 17:05 → UNDOADMIN 17:06 → EDIP 17:06 → ED 17:19 → 5SO 22:49 → EDIP 22:49 → UNDODISIN 03-29 00:11
DX: I48.2 Chronic atrial fibrillation (principal); I11.0 Hypertensive heart disease with heart failure; Z53.21 Procedure and treatment not carried out due to patient leaving prior to being seen by health care provider; I25.10 Atherosclerotic heart disease of native coronary artery without angina pectoris; I50.9 Heart failure, unspecified; J44.9 Chronic obstructive pulmonary disease, unspecified; Z79.01 Long term (current) use of anticoagulants; I25.2 Old myocardial infarction; Z90.49 Acquired absence of other specified parts of digestive tract
CPT/HCPCS: 36415; 71045; 80048; 82040; 84484; 85025; 85610; 85730; 93005; 96374; 99284; G0378

== ENCOUNTER 2018-03-28 20:54 | Inpatient (IN) | payer MEDICARE ==
[~2018-03-28] VITALS: Ht 188 cm; Wt 135.5 kg
[2018-03-28] MEDS ORDERED: DILTIAZEM 5 MG/ML, 5ML IVPush ONE (21:30)
[2018-03-28] MEDS ORDERED: DILTIAZEM 5 MG/ML, 5ML ONE (21:34)
[2018-03-28 21:45] LABS: ALBUMIN 3.8 g/dL (3.4-5.0); ANION GAP 8 mmol/L (5-15); CALCIUM 9.7 mg/dL (8.5-10.1); CHLORIDE 109 mmol/L (98-107)
[2018-03-28 21:51] LABS: CREATININE 0.84 mg/dL (0.7-1.3); TROPONIN I 0.036 ng/mL (0.000-0.045)
[2018-03-28] MEDS ORDERED: morphine SULFATE 10 MG/ML, 1ML IVPush PRN (22:30)
[2018-03-28] MEDS ORDERED: POLYETHYLENE GLYCOL 17 GM PACKET PO PRN (22:30)
[2018-03-28] MEDS ORDERED: METOPROLOL TARTRATE 50 MG TABLET PO SCH (22:30)
[2018-03-28] MEDS ORDERED: DOCUSATE 100 MG CAPSULE PO PRN (22:30)
[2018-03-28] MEDS ORDERED: ONDANSETRON 2MG/ML, 2ML IVPush PRN (22:30)
[2018-03-28] MEDS ORDERED: NITROGLYCERIN 0.4 MG/SPRAY SL PRN (22:30)
[2018-03-28] MEDS ORDERED: FAMOTIDINE 20 MG TABLET PO SCH (22:30)
[2018-03-28] MEDS ORDERED: ENOXAPARIN 40 MG/0.4 ML SQ SCH (22:30)
[2018-03-28] MEDS ORDERED: ACETAMINOPHEN 325 MG TABLET PO PRN (22:30)
[2018-03-28] MEDS ORDERED: NITROGLYCERIN 0.4 MG BOTTLE (25 TABS) SL PRN (22:30)
[2018-03-28] MEDS ORDERED: HYDROcodone/APAP 5/325 TABLET PO PRN (22:30)
--- NOTE | 2018-03-28 22:41 | NUR ---
[facility] TELEPHONE HAND-OFF REPORT GIVEN TO THAIS JOHNSON. PATIENT READY TO GO TO HOSPITAL ROOM.
[2018-03-28 23:00] VITALS: BP 120/81
[2018-03-29] MEDS ORDERED: DILTIAZEM 125 MG in SODIUM CHLORIDE 0.9% 100 ML IV SCH (00:30)
[2018-03-29 02:23] VITALS: BP 98/67
[2018-03-29 05:14] LABS: CHOLESTEROL, TOTAL 118 mg/dL (140-239)
[2018-03-29 05:18] LABS: CHOL/HDL RATIO 4.7; HDL CHOL % 21 % (26-37); HDL CHOLESTEROL (DIRECT) 25 mg/dL (40-60); LDL CHOLESTEROL,CALCULATED 53 mg/dL (54-169); LDL/HDL RATIO 2.1 (0.5-3.0); TRIGLYCERIDES 198 mg/dL (50-200); TROPONIN I 0.053 ng/mL (0.000-0.045); VLDL CHOLESTEROL 40 mg/dL (0-25)
[2018-03-29] MEDS ORDERED: ASPIRIN 81 MG TABLET EC PO SCH (09:00)
== END 2018-03-29 06:15 | disposition left against medical advice (07) | DRG 309 ==
LOC: ED 21:19 → SUATTDRO 22:15 → EDIP 23:32 → 5SO 23:43
PROVIDERS: ADMIT Family Medicine; ATTEND Family Medicine
DX: I48.0 Paroxysmal atrial fibrillation (principal); D68.69 Other thrombophilia; F17.200 Nicotine dependence, unspecified, uncomplicated; I11.0 Hypertensive heart disease with heart failure; Z53.21 Procedure and treatment not carried out due to patient leaving prior to being seen by health care provider; I25.10 Atherosclerotic heart disease of native coronary artery without angina pectoris; I34.0 Nonrheumatic mitral (valve) insufficiency; I50.9 Heart failure, unspecified; J44.9 Chronic obstructive pulmonary disease, unspecified; Z82.49 Family history of ischemic heart disease and other diseases of the circulatory system; I25.2 Old myocardial infarction; Z91.14 Patient's other noncompliance with medication regimen; Z90.49 Acquired absence of other specified parts of digestive tract; Z88.6 Allergy status to analgesic agent; Z88.8 Allergy status to other drugs, medicaments and biological substances; Z88.7 Allergy status to serum and vaccine
CPT/HCPCS: 36415; 80048; 80061; 82040; 84484; 93005; 99285; G0378; J1650

== ENCOUNTER 2018-04-26 06:44 | Emergency (ER) | payer MEDICARE, OTHER ==
[~2018-04-26] VITALS: Ht 188 cm; Wt 120.0 kg
--- NOTE | 2018-04-26 06:59 | NUR ---
PT BIB [facility] C/O CPx1 HOUR ON L SIDE OF CHEST. STATES CP SHARP AND SIMILAR TO "HIS LAST 9 HEART ATTACKS." DENIES ANY HX OF STENTS PLACED. STATES MULTIPLE HEART AND LUNG DISEASES AND STATES "I DONT TAKE MOST OF MY MEDICATIONS BECAUSE I CANT AFFORD THEM." GIVEN 324 MG ASPIRIN BY EMS. ALL MONITORING APPLIED. VSS. CALL LIGHT WITHIN REACH. PT STATES FROM FIRST MEETING OF STAFF "I DONT THINK IM GOING TO STAY HERE LONG. THE LAST TIME I WAS IN THE HOSPITAL I LEFT. FUCK THESE PLACES.... YOU GUYS ARE A BUNCH OF THIEVES."
--- NOTE | 2018-04-26 07:03 | NUR ---
PT REPORT GIVEN TO
--- NOTE | 2018-04-26 07:03 | NUR ---
PT. IS RESTING WITH THE CP MONITOR IN PLACE. PT.'S CALL LIGHT IS IN PLACE. SIDERAILS REMAIN UP X 2.
[2018-04-26] MEDS ORDERED: SODIUM CHLORIDE FLUSH 10ML SYR IVF ONE (07:30)
[2018-04-26 07:35] LABS: BASOPHILS # (AUTO) 0.02 x10^3/uL (0-0.1); BASOPHILS % (AUTO) 0 % (0-1); EOSINOPHILS # (AUTO) 0.08 x10^3/uL (0-0.4); EOSINOPHILS % (AUTO) 2 % (1-7); LYMPHOCYTES # (AUTO) 2.14 x10^3/uL (1-3.4); LYMPHOCYTES % (AUTO) 41 % (22-44); MD NO; MEAN CORPUSCULAR HEMOGLOBIN 30.7 pg (27.5-34.5); MEAN CORPUSCULAR HGB CONC 34.5 g/dL (33.2-36.2); MEAN CORPUSCULAR VOLUME 88.9 fL (81-97); MEAN PLATELET VOLUME 8.9 fL (7.4-10.4); MONOCYTES # (AUTO) 0.37 x10^3/uL (0.2-0.8); MONOCYTES % (AUTO) 7 % (2-9); NEUTROPHILS # (AUTO) 2.58 x10^3/uL (1.8-6.8); NEUTROPHILS % (AUTO) 50 % (42-75); PLATELET COUNT 170 x10^3/uL (130-400); RED BLOOD COUNT 5.04 x10^6/uL (4.38-5.82); RED CELL DISTRIBUTION WIDTH 14.2 % (9.4-14.8)
[2018-04-26 07:57] LABS: ALBUMIN 3.6 g/dL (3.4-5.0); ANION GAP 6 mmol/L (5-15); CALCIUM 8.3 mg/dL (8.5-10.1); CHLORIDE 111 mmol/L (98-107); CREATININE 0.77 mg/dL (0.7-1.3); TROPONIN I < 0.015 ng/mL (0.000-0.045)
--- NOTE | 2018-04-26 09:27 | NUR ---
PT. WAS GIVEN DISCHARGE INSTRUCTIONS AND SCRIPTS WITH UNDERSTANDING VERBALIZED ALONG WITH WILLINGNESS TO COMPLY. PT.'S IV WAS DCD',CATH TIP INTACT. PRESSURE HELD WITH HEMOSTASIS ACHIEVED. PT. WAS AMBULATORY WITH A STEADY GAIT TO DISCHARGE.
[2018-04-26 09:29] VITALS: BP 115/80
[2018-04-27] MEDS ORDERED: METO50TA82 PO (13:47)
[2018-04-27] MEDS ORDERED: IPRA3AMP30 NPPB (13:47)
[2018-04-27] MEDS ORDERED: ASPI-650 PO (13:47)
== END 2018-04-26 09:32 | disposition home or self-care (01) ==
LOC: ED 07:02
DX: R07.89 Other chest pain (principal); J44.9 Chronic obstructive pulmonary disease, unspecified; I11.0 Hypertensive heart disease with heart failure; I50.9 Heart failure, unspecified; I25.2 Old myocardial infarction; I20.0 Unstable angina; I48.91 Unspecified atrial fibrillation; Z72.9 Problem related to lifestyle, unspecified
CPT/HCPCS: 36415; 71045; 80048; 82040; 83880; 84484; 85025; 93005; 99284

== ENCOUNTER 2018-04-27 00:17 | Observation (INO) | payer MEDICARE ==
[~2018-04-27] VITALS: Ht 188 cm; Wt 113.0 kg
[2018-04-27] MEDS ORDERED: SODIUM CHLORIDE FLUSH 10ML SYR IVF ONE (00:30)
--- NOTE | 2018-04-27 00:33 | NUR ---
PT BIB [facility] WITH C/O LEFT SIDED CP SHARP THAT RADIATES TO B/L ARMS, PT ALSO C/O B/L HAND NUMBNESS. PT WAS SEEN HERE THIS AM FOR SAME. ENROUTE 12 LEAD EKG SHOWED RAPID AFIB, HR-140, B/P-132/58, 94% R/A. PT RECEIVED 324 ASPIRIN DATE NIGHT CAREGIVER. MONITORS APPLIED, SIDERAILS UP X2, CALL LIGHT WITHIN REACH. INVENTORY AUDITOR AT BEDSIDE FOR DRAW
[2018-04-27 00:39] LABS: BASOPHILS # (AUTO) 0.03 x10^3/uL (0-0.1); BASOPHILS % (AUTO) 1 % (0-1); EOSINOPHILS # (AUTO) 0.08 x10^3/uL (0-0.4); EOSINOPHILS % (AUTO) 1 % (1-7); LYMPHOCYTES % (AUTO) 40 % (22-44); MD NO; MEAN CORPUSCULAR HEMOGLOBIN 31.3 pg (27.5-34.5); MEAN CORPUSCULAR HGB CONC 35.3 g/dL (33.2-36.2); MEAN CORPUSCULAR VOLUME 88.8 fL (81-97); MEAN PLATELET VOLUME 8.9 fL (7.4-10.4); MONOCYTES # (AUTO) 0.36 x10^3/uL (0.2-0.8); MONOCYTES % (AUTO) 6 % (2-9); NEUTROPHILS # (AUTO) 2.94 x10^3/uL (1.8-6.8); NEUTROPHILS % (AUTO) 51 % (42-75); PLATELET COUNT 165 x10^3/uL (130-400); RED BLOOD COUNT 5.16 x10^6/uL (4.38-5.82); RED CELL DISTRIBUTION WIDTH 14.3 % (9.4-14.8)
[2018-04-27] MEDS ORDERED: DILTIAZEM 5 MG/ML, 5ML IVPush STA (00:44)
[2018-04-27 00:50] LABS: ANION GAP 6 mmol/L (5-15); CALCIUM 8.6 mg/dL (8.5-10.1); CHLORIDE 110 mmol/L (98-107); CREATININE 0.84 mg/dL (0.7-1.3)
[2018-04-27] MEDS ORDERED: ALBUTEROL/IPRATROPIUM 2.5MG/0.5MG, 3 ML ONE (00:53)
[2018-04-27 00:54] LABS: TROPONIN I 0.027 ng/mL (0.000-0.045)
[2018-04-27] MEDS ORDERED: DILTIAZEM 5 MG/ML, 5ML ONE (00:54)
[2018-04-27] MEDS ORDERED: HEPARIN 25,000 UNITS/500ML PMX 500 ML ONE (00:55)
[2018-04-27] MEDS ORDERED: HEPARIN 5,000 UNITS/ML, 1ML ONE (00:55)
[2018-04-27] MEDS ORDERED: HEPARIN 5,000 UNITS/ML, 1ML IV PRN (01:00)
[2018-04-27] MEDS ORDERED: DILTIAZEM 60 MG TABLET PO ONE (01:00)
[2018-04-27] MEDS ORDERED: HEPARIN 5,000 UNITS/ML, 1ML IV ONE (01:00)
[2018-04-27] MEDS ORDERED: ALBUTEROL/IPRATROPIUM 2.5MG/0.5MG, 3 ML NPPB ONE (01:00)
[2018-04-27] MEDS ORDERED: HEPARIN 25,000 UNITS/500ML PMX 500 ML IV PRN (01:00)
[2018-04-27 01:06] LABS: INTERNATIONAL NORMALIZED RATIO 0.96 (0.93-1.1); PARTIAL THROMBOPLASTIN TIME 29 Seconds (25-31); PROTHROMBIN TIME 10.1 Seconds (9.6-11.5)
[2018-04-27] MEDS: SODIUM CHLORIDE 0.9% 1,000 ML IV SCH ×2 (01:25→11:25)
[2018-04-27] MEDS ORDERED: MAGNESIUM SULFATE PMX 2GM/50ML 50 ML IV ONE ×3 (01:30→11:00)
[2018-04-27] MEDS ORDERED: BISACODYL 10 MG SUPP PR PRN (01:30)
[2018-04-27] MEDS ORDERED: NICOTINE 7 MG/24 HR PATCH.TD24 TD SCH (01:30)
[2018-04-27] MEDS ORDERED: HYDROmorphone 2 MG/ML, 1ML IVPush PRN (01:30)
[2018-04-27] MEDS ORDERED: PROMETHAZINE 25 MG/ML, 1ML IM PRN (01:30)
[2018-04-27] MEDS: HEPARIN 5,000 UNITS/ML, 1ML SQ SCH ×2 (01:30→09:13)
[2018-04-27] MEDS ORDERED: NITROGLYCERIN 0.4 MG BOTTLE (25 TABS) SL PRN ×2 (01:30→03:30)
[2018-04-27] MEDS ORDERED: hydrALAzine 20 MG/ML, 1ML IVPush PRN (01:30)
[2018-04-27] MEDS ORDERED: ONDANSETRON 2MG/ML, 2ML IVPush PRN (01:30)
[2018-04-27] MEDS ORDERED: POLYETHYLENE GLYCOL 17 GM PACKET PO PRN (01:30)
[2018-04-27] MEDS ORDERED: DOCUSATE 100 MG CAPSULE PO PRN (01:30)
[2018-04-27] MEDS ORDERED: ONDANSETRON ODT 4 MG PO PRN (01:30)
[2018-04-27] MEDS ORDERED: ACETAMINOPHEN 325 MG TABLET PO PRN (01:30)
[2018-04-27] MEDS ORDERED: OXYcodone IR 5MG TABLET PO PRN (01:30)
--- NOTE | 2018-04-27 01:55 | NUR ---
PER LAB ANTI-XA NOT ABLE TO BE RUN, WOULD HAVE TO BE A SENDOUT, LAB CANCELLED FOR NOW
[2018-04-27 01:58] LABS: FREE T4 (FREE THYROXINE) 0.81 ng/dL (0.76-1.46); THYROID STIMULATING HORMONE 1.57 mIU/L (0.358-3.740)
[2018-04-27 01:59] LABS: HEMOGLOBIN A1C 5.5 % (4.2-6.3)
[2018-04-27] MEDS ORDERED: ALBUTEROL/IPRATROPIUM 2.5MG/0.5MG, 3 ML NPPB PRN (02:30)
[2018-04-27 03:06] VITALS: BP 104/72
[2018-04-27] MEDS ORDERED: NITROGLYCERIN 0.4 MG/SPRAY SL PRN (03:30)
[2018-04-27 04:10] LABS: MICROSCOPIC NOT IND
[2018-04-27 04:16] LABS: CULTURE INDICATED? NO
[2018-04-27 05:14] LABS: BASOPHILS # (AUTO) 0.02 x10^3/uL (0-0.1); BASOPHILS % (AUTO) 0 % (0-1); EOSINOPHILS # (AUTO) 0.12 x10^3/uL (0-0.4); EOSINOPHILS % (AUTO) 2 % (1-7); LYMPHOCYTES # (AUTO) 2.18 x10^3/uL (1-3.4); LYMPHOCYTES % (AUTO) 31 % (22-44); MD NO; MEAN CORPUSCULAR HEMOGLOBIN 31.1 pg (27.5-34.5); MEAN CORPUSCULAR HGB CONC 34.7 g/dL (33.2-36.2); MEAN CORPUSCULAR VOLUME 89.5 fL (81-97); MEAN PLATELET VOLUME 9.7 fL (7.4-10.4); MONOCYTES # (AUTO) 0.31 x10^3/uL (0.2-0.8); MONOCYTES % (AUTO) 5 % (2-9); NEUTROPHILS # (AUTO) 4.33 x10^3/uL (1.8-6.8); NEUTROPHILS % (AUTO) 62 % (42-75); PLATELET COUNT 155 x10^3/uL (130-400); RED BLOOD COUNT 4.79 x10^6/uL (4.38-5.82); RED CELL DISTRIBUTION WIDTH 14.6 % (9.4-14.8)
[2018-04-27 05:30] LABS: ALANINE AMINOTRANSFERASE 31 U/L (12-78); ALBUMIN 3.6 g/dL (3.4-5.0); ALKALINE PHOSPHATASE 92 U/L (45-117); ANION GAP 6 mmol/L (5-15); BILIRUBIN,TOTAL 0.6 mg/dL (0.2-1.0); CALCIUM 8.4 mg/dL (8.5-10.1); CHLORIDE 112 mmol/L (98-107); CREATININE 0.69 mg/dL (0.7-1.3); TOTAL PROTEIN 7.2 g/dL (6.4-8.2); TROPONIN I 0.055 ng/mL (0.000-0.045)
[2018-04-27] MEDS ORDERED: ASPIRIN 325 MG TABLET EC PO SCH (06:00)
[2018-04-27 06:40] VITALS: BP 101/74
[2018-04-27] MEDS ORDERED: REGADENOSON 0.4 MG/5 ML SYRINGE ONE (08:43)
[2018-04-27] MEDS ORDERED: METOPROLOL TARTRATE 50 MG TABLET PO SCH (09:00)
[2018-04-27 09:56] LABS: TROPONIN I 0.052 ng/mL (0.000-0.045)
[2018-04-27] MEDS ORDERED: MAGNESIUM CHLORIDE 64 MG TABLET.DR PO SCH (10:30)
[2018-04-27 13:03] VITALS: BP 107/72
[2018-04-27] MEDS ORDERED: IPRA3AMP30 NPPB (13:47)
[2018-04-27] MEDS ORDERED: ASPI-650 PO (13:47)
[2018-04-27] MEDS ORDERED: METO50TA82 PO (13:47)
== END 2018-04-27 14:38 | disposition left against medical advice (07) ==
LOC: ED 01:09 → INTOOBSV 01:10 → EDIP 01:10 → 5SO 02:33
PROVIDERS: ADMIT Internal Medicine; ATTEND Internal Medicine
DX: R07.89 Other chest pain (principal); R05 Cough; R06.00 Dyspnea, unspecified; J44.9 Chronic obstructive pulmonary disease, unspecified; I48.0 Paroxysmal atrial fibrillation; D68.59 Other primary thrombophilia; F17.210 Nicotine dependence, cigarettes, uncomplicated; I25.110 Atherosclerotic heart disease of native coronary artery with unstable angina pectoris; I11.0 Hypertensive heart disease with heart failure; I50.9 Heart failure, unspecified; I25.2 Old myocardial infarction; I34.0 Nonrheumatic mitral (valve) insufficiency; Z59.9 Problem related to housing and economic circumstances, unspecified; Z82.49 Family history of ischemic heart disease and other diseases of the circulatory system; Z87.11 Personal history of peptic ulcer disease; Z91.14 Patient's other noncompliance with medication regimen
CPT/HCPCS: 36415; 71045; 78452; 80048; 80053; 81003; 82040; 83036; 83735; 83880; 84439; 84443; 84484; 85025; 85610; 85730; 93005; 93017; 93306; 94640; 96365; 96366; 96368; 96372; 96375; 96376; 99284; A9502; C9898; G0378; J1644; J2785; J3475; J7620

== ENCOUNTER 2018-05-04 03:24 | Emergency (ER) | payer MEDICARE ==
[~2018-05-04] VITALS: Ht 188 cm; Wt 120.0 kg
[~2018-05-04 03:24] MED LIST changes: +IPRA3AMP30 NPPB
--- NOTE | 2018-05-04 03:38 | NUR ---
PT BIB [facility] FOR LEFT SIDED CHEST THAT IS REPRODUCIBLE WITH PALPATION. PT WAS SEEN HERE FOR SAME LAST WEEK. PT IS IN AFIB. VSS. PT TOOK 324 ASA MEASUREMENT PSYCHOLOGIST. CALL LIGHT IN REACH
--- NOTE | 2018-05-04 03:45 | NUR ---
PT ANGRY THAT HIS PAIN IS NOT BEING TREATED QUICKLY ENOUGH. PT EDUCATED THAT MD NEEDS TO EVALUATED PT FIRST. PERIODONTAL ASSISTANT TOLD ABOUT PTS DEMANDS TO SEE SOMEONE IN CHARGE. MD NOW AT BEDSIDE. WAITING FOR ORDERS.
[2018-05-04] MEDS ORDERED: DILTIAZEM 5 MG/ML, 10ML ONE (04:00)
[2018-05-04] MEDS ORDERED: DILTIAZEM 5 MG/ML, 5ML IV ONE (04:00)
[2018-05-04 04:13] LABS: BASOPHILS # (AUTO) 0.04 x10^3/uL (0-0.1); BASOPHILS % (AUTO) 1 % (0-1); EOSINOPHILS # (AUTO) 0.09 x10^3/uL (0-0.4); EOSINOPHILS % (AUTO) 1 % (1-7); LYMPHOCYTES # (AUTO) 3.02 x10^3/uL (1-3.4); LYMPHOCYTES % (AUTO) 35 % (22-44); MD NO; MEAN CORPUSCULAR HEMOGLOBIN 30.7 pg (27.5-34.5); MEAN CORPUSCULAR HGB CONC 34.1 g/dL (33.2-36.2); MEAN PLATELET VOLUME 8.7 fL (7.4-10.4); MONOCYTES # (AUTO) 0.51 x10^3/uL (0.2-0.8); MONOCYTES % (AUTO) 6 % (2-9); NEUTROPHILS # (AUTO) 4.97 x10^3/uL (1.8-6.8); NEUTROPHILS % (AUTO) 58 % (42-75); PLATELET COUNT 185 x10^3/uL (130-400); RED CELL DISTRIBUTION WIDTH 14.2 % (9.4-14.8)
[2018-05-04 04:20] LABS: ALBUMIN 3.8 g/dL (3.4-5.0); ANION GAP 5 mmol/L (5-15); CALCIUM 8.6 mg/dL (8.5-10.1); CHLORIDE 113 mmol/L (98-107)
[2018-05-04 04:26] LABS: ALANINE AMINOTRANSFERASE 23 U/L (12-78); ALKALINE PHOSPHATASE 96 U/L (45-117); BILIRUBIN,TOTAL 0.4 mg/dL (0.2-1.0); CREATININE 0.77 mg/dL (0.7-1.3); TOTAL PROTEIN 7.7 g/dL (6.4-8.2); TROPONIN I 0.018 ng/mL (0.000-0.045)
--- NOTE | 2018-05-04 04:44 | NUR ---
PT FEELING BETTER. MD AT BEDSIDE
[2018-05-04 04:53] VITALS: BP 111/75
--- NOTE | 2018-05-04 05:05 | NUR ---
Patient given discharge instructions and they have confirmed that they understand the instructions. Patient ambulatory with steady gait.
== END 2018-05-04 05:07 | disposition home or self-care (01) ==
LOC: ED 04:05
DX: I48.91 Unspecified atrial fibrillation (principal); R07.9 Chest pain, unspecified; I25.10 Atherosclerotic heart disease of native coronary artery without angina pectoris; I11.0 Hypertensive heart disease with heart failure; I50.9 Heart failure, unspecified; J44.9 Chronic obstructive pulmonary disease, unspecified; I25.2 Old myocardial infarction; F17.200 Nicotine dependence, unspecified, uncomplicated; Z72.9 Problem related to lifestyle, unspecified; Z90.49 Acquired absence of other specified parts of digestive tract
CPT/HCPCS: 36415; 71045; 80053; 84484; 85025; 93005; 96374

== ENCOUNTER 2018-05-16 17:18 | Inpatient (IN) | payer MEDICARE ==
[~2018-05-16] VITALS: Ht 188 cm; Wt 114.7 kg
[2018-05-16 17:52] LABS: BASOPHILS # (AUTO) 0.03 x10^3/uL (0-0.1); BASOPHILS % (AUTO) 0 % (0-1); EOSINOPHILS # (AUTO) 0.08 x10^3/uL (0-0.4); EOSINOPHILS % (AUTO) 1 % (1-7); LYMPHOCYTES # (AUTO) 4.22 x10^3/uL (1-3.4); LYMPHOCYTES % (AUTO) 49 % (22-44); MD NO; MEAN CORPUSCULAR HEMOGLOBIN 30.7 pg (27.5-34.5); MEAN CORPUSCULAR HGB CONC 34.5 g/dL (33.2-36.2); MEAN CORPUSCULAR VOLUME 88.9 fL (81-97); MEAN PLATELET VOLUME 8.1 fL (7.4-10.4); MONOCYTES # (AUTO) 0.55 x10^3/uL (0.2-0.8); MONOCYTES % (AUTO) 6 % (2-9); NEUTROPHILS # (AUTO) 3.75 x10^3/uL (1.8-6.8); NEUTROPHILS % (AUTO) 44 % (42-75); PLATELET COUNT 211 x10^3/uL (130-400); RED BLOOD COUNT 5.07 x10^6/uL (4.38-5.82)
[2018-05-16 17:59] LABS: ALBUMIN 4.2 g/dL (3.4-5.0); ANION GAP 6 mmol/L (5-15); CALCIUM 9.6 mg/dL (8.5-10.1); CHLORIDE 109 mmol/L (98-107); CREATININE 1.18 mg/dL (0.7-1.3)
[2018-05-16] MEDS ORDERED: SODIUM CHLORIDE 0.9% 1,000ML IVBOLUS ONE (18:00)
[2018-05-16] MEDS ORDERED: ASPIRIN 81 MG TABLET CHEW PO ONE (18:00)
[2018-05-16] MEDS ORDERED: DILTIAZEM 5 MG/ML, 5ML IV ONE (18:00)
[2018-05-16] MEDS ORDERED: SODIUM CHLORIDE FLUSH 10ML SYR IVF ONE (18:00)
[2018-05-16 18:03] LABS: TROPONIN I 0.026 ng/mL (0.000-0.045)
[2018-05-16] MEDS ORDERED: PROPOFOL 10 MG/ML, 20ML IVP ONE (18:30)
[2018-05-16] MEDS ORDERED: PROPOFOL 10 MG/ML, 20ML ONE (18:30)
--- NOTE | 2018-05-16 18:35 | NUR ---
Dr. Sotelo in room for cardioversion with procedural sedation, patient awake and alert in no apparent distress.
--- NOTE | 2018-05-16 18:38 | NUR ---
Propofol 50mg administered IV push.
--- NOTE | 2018-05-16 18:39 | NUR ---
Cardioversion attempted with 200 joules, patient tolerated well.
--- NOTE | 2018-05-16 18:40 | NUR ---
Propofol 50mg administered IV push for second attempt to cardiovert.
--- NOTE | 2018-05-16 18:41 | NUR ---
Cardioversion attempted, unsuccessful.
--- NOTE | 2018-05-16 18:42 | NUR ---
Patient remains sedated, no arousal to painful stimuli. Third attempt to cardiovert at this time, unsuccessful.
--- NOTE | 2018-05-16 18:48 | NUR ---
Patient mumbling, arouses to painful stimuli but does not speak purposefully.
--- NOTE | 2018-05-16 18:55 | NUR ---
Patient arouses to voice, answering questions.
[2018-05-16] MEDS ORDERED: RIVAROXABAN 20 MG TABLET PO STA (18:56)
--- NOTE | 2018-05-16 19:05 | NUR ---
Patient is awake and alert, plan of care discussed, call guido within reach.
[2018-05-16] MEDS ORDERED: RIVAROXABAN 20 MG TABLET ONE (19:28)
[2018-05-16] MEDS ORDERED: ASPIRIN 81 MG TABLET CHEW ONE (19:28)
--- NOTE | 2018-05-16 19:33 | NUR ---
Per Dr. Sotelo, rohith silveira at this time, verbal order read back and verified.
[2018-05-16] MEDS ORDERED: ASPI81TA45 PO (19:34)
[2018-05-16] MEDS ORDERED: ONDANSETRON 2MG/ML, 2ML IVPush PRN (20:00)
[2018-05-16] MEDS ORDERED: LABETALOL 5MG/ML, 20ML IVPush PRN (20:00)
[2018-05-16] MEDS ORDERED: OXYcodone IR 5MG TABLET PO PRN (20:00)
[2018-05-16] MEDS ORDERED: POLYETHYLENE GLYCOL 17 GM PACKET PO PRN (20:00)
--- NOTE | 2018-05-16 20:30 | NUR ---
Report to THAIS Rowe
[2018-05-16 20:48] LABS: TROPONIN I 0.036 ng/mL (0.000-0.045)
[2018-05-16] MEDS ORDERED: ENOXAPARIN 120MG/0.8ML SQ SCH (21:00)
[2018-05-16] MEDS ORDERED: METOPROLOL TARTRATE 50 MG TABLET PO SCH (21:00)
[2018-05-16 21:16] VITALS: BP 115/72
[2018-05-16 21:49] VITALS: BP 115/72
[2018-05-16] MEDS ORDERED: MAGNESIUM SULFATE PMX 2GM/50ML 50 ML IV ONE (22:00)
[2018-05-17 00:31] VITALS: BP 110/73
[2018-05-17 01:56] LABS: ALANINE AMINOTRANSFERASE 21 U/L (12-78); ALBUMIN 3.6 g/dL (3.4-5.0); ANION GAP 6 mmol/L (5-15); CALCIUM 8.8 mg/dL (8.5-10.1); CHLORIDE 112 mmol/L (98-107); CREATININE 0.83 mg/dL (0.7-1.3)
[2018-05-17 02:01] LABS: TROPONIN I 0.039 ng/mL (0.000-0.045)
[2018-05-17 02:03] LABS: BASOPHILS # (AUTO) 0.02 x10^3/uL (0-0.1); BASOPHILS % (AUTO) 0 % (0-1); EOSINOPHILS # (AUTO) 0.05 x10^3/uL (0-0.4); EOSINOPHILS % (AUTO) 1 % (1-7); LYMPHOCYTES # (AUTO) 2.71 x10^3/uL (1-3.4); LYMPHOCYTES % (AUTO) 47 % (22-44); MD NO; MEAN CORPUSCULAR HEMOGLOBIN 29.7 pg (27.5-34.5); MEAN CORPUSCULAR HGB CONC 32.9 g/dL (33.2-36.2); MEAN CORPUSCULAR VOLUME 90.3 fL (81-97); MEAN PLATELET VOLUME 8.6 fL (7.4-10.4); MONOCYTES # (AUTO) 0.45 x10^3/uL (0.2-0.8); MONOCYTES % (AUTO) 8 % (2-9); NEUTROPHILS # (AUTO) 2.56 x10^3/uL (1.8-6.8); NEUTROPHILS % (AUTO) 44 % (42-75); PLATELET COUNT 193 x10^3/uL (130-400); RED BLOOD COUNT 4.81 x10^6/uL (4.38-5.82); RED CELL DISTRIBUTION WIDTH 14.3 % (9.4-14.8)
[2018-05-17 02:06] LABS: ALKALINE PHOSPHATASE 84 U/L (45-117); BILIRUBIN,TOTAL 0.4 mg/dL (0.2-1.0); TOTAL PROTEIN 7.2 g/dL (6.4-8.2)
[2018-05-17] MEDS ORDERED: ASPIRIN 81 MG TABLET EC PO SCH (09:00)
== END 2018-05-17 03:44 | disposition left against medical advice (07) | DRG 309 ==
LOC: ED 18:26 → EDIP 19:01 → 5SO 20:46
PROVIDERS: ADMIT Family Medicine; ATTEND Family Medicine
PROC: 5A2204Z Restoration of Cardiac Rhythm, Single (ICD-10-PCS; principal; 2018-05-16)
DX: I48.92 Unspecified atrial flutter (principal); I24.8 Other forms of acute ischemic heart disease; I48.0 Paroxysmal atrial fibrillation; I11.0 Hypertensive heart disease with heart failure; I50.9 Heart failure, unspecified; J43.9 Emphysema, unspecified; Z53.21 Procedure and treatment not carried out due to patient leaving prior to being seen by health care provider; I25.10 Atherosclerotic heart disease of native coronary artery without angina pectoris; I25.2 Old myocardial infarction; Z79.01 Long term (current) use of anticoagulants; Z87.11 Personal history of peptic ulcer disease; Z87.891 Personal history of nicotine dependence; Z87.01 Personal history of pneumonia (recurrent); Z90.49 Acquired absence of other specified parts of digestive tract
CPT/HCPCS: 36415; 71045; 80048; 80053; 82040; 83735; 84443; 84484; 85025; 93005; 99291; G0378; J1650; J3475; J7030

== ENCOUNTER 2018-05-23 19:51 | Emergency (ER) | payer MEDICARE ==
[~2018-05-23] VITALS: Ht 188 cm; Wt 92.0 kg
--- NOTE | 2018-05-23 20:03 | NUR ---
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 ALSO STATES HISTORY UT 5 YEARS AGO AND ABD SURGERY "A LONG TIME AGO" AFTER SWALLOWING A BATTERY. EKG OBTAINED UPON ARRIVAL.
[2018-05-23 20:08] VITALS: BP 113/74
--- NOTE | 2018-05-23 20:15 | NUR ---
PT RESTING ON GURNEY, MONITORS IN PLACE, CALL LIGHT WITHIN REACH, PT NOTIFIED THAT ERP WILL BE IN TO SEE HIM, PT VERBALIZED UNDERSTANDING AND AGREEMENT.
--- NOTE | 2018-05-23 20:44 | NUR ---
PT CONVEYOR SYSTEM DISPATCHER LIGHT STATED "I WAITED TOO LONG AND I'M LEAVING', INFORMED PT THAT ERP WILL BE SEEING HIM AND THAT I WILL NOTIFY ERP OF PT REQUESTING AMA, PT REFUSED TO STAY AND IV SITE D/C AND PT LEFT AMA, ERP UPDATED.
== END 2018-05-23 20:47 | disposition left against medical advice (07) ==
LOC: ED 20:41
DX: R07.9 Chest pain, unspecified (principal); Z53.21 Procedure and treatment not carried out due to patient leaving prior to being seen by health care provider
CPT/HCPCS: 93005

== ENCOUNTER 2018-06-10 08:12 | Emergency (ER) | payer SELFPAY ==
[~2018-06-10] VITALS: Ht 188 cm; Wt 112.0 kg
[2018-06-10 08:14] VITALS: BP 143/75
[2018-06-10] MEDS ORDERED: BACITRACIN ZINC OINT 500U/GM, 0.9 GM ONE (09:33)
--- NOTE | 2018-06-10 10:03 | NUR ---
Patient given splint right ankle & discharge instructions and they have confirmed that they understand the instructions. Patient ambulatory with steady gait. Addendum: 06/10/18 at 1003 by ALEXANDRA Patient given splint right ankle & discharge instructions (refused crutches- "has them at home") and they have confirmed that they understand the instructions. Patient ambulatory with steady gait.
== END 2018-06-10 10:05 | disposition home or self-care (01) ==
LOC: ED 08:43
DX: S93.491A Sprain of other ligament of right ankle, initial encounter (principal); W01.0XXA Fall on same level from slipping, tripping and stumbling without subsequent striking against object, initial encounter; Y93.89 Activity, other specified; Y92.89 Other specified places as the place of occurrence of the external cause; Y99.8 Other external cause status; Z90.49 Acquired absence of other specified parts of digestive tract; J44.9 Chronic obstructive pulmonary disease, unspecified; Z72.9 Problem related to lifestyle, unspecified; I25.2 Old myocardial infarction; I11.0 Hypertensive heart disease with heart failure; I50.9 Heart failure, unspecified; I25.10 Atherosclerotic heart disease of native coronary artery without angina pectoris
CPT/HCPCS: 99283

== ENCOUNTER 2018-07-18 18:43 | Emergency (ER) | payer MEDICARE, OTHER ==
[~2018-07-18] VITALS: Ht 188 cm; Wt 117.8 kg
--- NOTE | 2018-07-18 18:59 | NUR ---
PT BIB [facility] WITH SHARP, SUDDEN ONSET OF CP WHILE PT WAS TRYING TO REST. PT HAS HX O F SAME EPISODES IN THE PAST WITH NORMAL STRESS TEST DONE 3 MONTHS AGO PER PT. PT IS IN A-FIB AT A RATE OF 120-150. PT IS NOT ON ANY BLOOD THINNERS OR RATE CONTROL DRUGS. PT ON MONITOR.
[2018-07-18] MEDS ORDERED: DILTIAZEM 5 MG/ML, 5ML IV ONE (19:00)
[2018-07-18] MEDS ORDERED: DILTIAZEM 5 MG/ML, 5ML ONE (19:04)
--- NOTE | 2018-07-18 19:10 | NUR ---
JOSELIN STUART AT BEDSIDE.
[2018-07-18 19:25] LABS: BASOPHILS # (AUTO) 0.02 x10^3/uL (0-0.1); BASOPHILS % (AUTO) 0 % (0-1); EOSINOPHILS # (AUTO) 0.06 x10^3/uL (0-0.4); EOSINOPHILS % (AUTO) 1 % (1-7); LYMPHOCYTES # (AUTO) 2.53 x10^3/uL (1-3.4); LYMPHOCYTES % (AUTO) 40 % (22-44); MD NO; MEAN CORPUSCULAR HEMOGLOBIN 30.9 pg (27.5-34.5); MEAN CORPUSCULAR VOLUME 91.1 fL (81-97); MEAN PLATELET VOLUME 8.4 fL (7.4-10.4); MONOCYTES # (AUTO) 0.32 x10^3/uL (0.2-0.8); MONOCYTES % (AUTO) 5 % (2-9); NEUTROPHILS % (AUTO) 54 % (42-75); PLATELET COUNT 193 x10^3/uL (130-400); RED BLOOD COUNT 5.54 x10^6/uL (4.38-5.82)
[2018-07-18 19:37] LABS: ALBUMIN 3.9 g/dL (3.4-5.0); ANION GAP 9 mmol/L (5-15); CALCIUM 8.9 mg/dL (8.5-10.1); CHLORIDE 111 mmol/L (98-107)
[2018-07-18 19:43] LABS: CREATININE 0.67 mg/dL (0.7-1.3); TROPONIN I 0.023 ng/mL (0.000-0.045)
--- NOTE | 2018-07-18 19:51 | NUR ---
CHART UP FOR MD RECHECK. PT AWARE.
[2018-07-18 19:52] VITALS: BP 117/72
--- NOTE | 2018-07-18 20:35 | NUR ---
PT STATES, "I DON'T WANT TO FUCKING BE HERE. TAKE OUT THIS IV SO I CAN GO. THE DOCTOR IS IN THAT CODE BLUE AND I AIN'T WAITING FOR HIM." IV REMOVED AND PT LEFT WITH A STEADY GAIT.
== END 2018-07-18 20:38 | disposition left against medical advice (07) ==
LOC: ED 18:49
DX: I48.2 Chronic atrial fibrillation (principal); I25.10 Atherosclerotic heart disease of native coronary artery without angina pectoris; I11.0 Hypertensive heart disease with heart failure; I50.9 Heart failure, unspecified; J44.9 Chronic obstructive pulmonary disease, unspecified; F17.200 Nicotine dependence, unspecified, uncomplicated; Z72.9 Problem related to lifestyle, unspecified; Z90.49 Acquired absence of other specified parts of digestive tract
CPT/HCPCS: 36415; 80048; 82040; 84484; 85025; 96374

== ENCOUNTER 2018-07-25 23:10 | Emergency (ER) | payer MEDICARE ==
[~2018-07-25] VITALS: Ht 188 cm; Wt 90.0 kg
[2018-07-25 23:15] VITALS: BP 130/88
--- NOTE | 2018-07-25 23:34 | NUR ---
62 Y/O MALE BIB [facility] FOR CP THAT STARTED APPROX AN HOUR AGO. SUBSTERNAL, NONRADIATING, 06/11. PT DENIES ANY N/V, SOB, DIZZINESS, WEAKNESS. PT REPORTS HE TOOK 324MG OF ASA PO PRIOR TO CALLING EMS. HX OF AFIB, COPD, HTN. PT HAS NOT BEEN TAKING ANY MEDICATIONS DUE TO FINANCIAL REASONS. PT IS IN NAD. VITALS STABLE. AFIB ON THE MONITOR. NO ECTOPY NOTED. CALL LIGHT WITHIN REACH. WILL CONTINUE TO MONITOR.
--- NOTE | 2018-07-25 23:50 | NUR ---
PT REFUSING LABS. WHEN ASKED WHY HE CAME HERE IF HE IS NOT GOING TO ALLOW US TO HELP HIM HE STATES "I DON'T KNOW". THE PT WAS EXPLAINED THE IMPORTANCE OF OBTAINING LAB WORK IN ORDER TO ASSESS HIS TROPONIN LEVELS, PT RESPONDS "IT'S ALWAYS NORMAL", "GIVE ME MY DISCHARGE PAPERS AND LET ME GO". DR. CRISTINA FLOOD.
--- NOTE | 2018-07-26 00:07 | NUR ---
WENT BACK TO ROOM WITH AMA PAPERWORK. PT GOWN ON BED AND ALL ATTACHMENTS THAT WERE PREVIOUSLY ON THE PATIENT WERE ON THE FLOOR. PT NOT FOUND IN DEPARTMENT. PT PRESUMED TO BE ELOPED.
== END 2018-07-26 00:10 | disposition left against medical advice (07) ==
LOC: ED 23:37
DX: R07.89 Other chest pain (principal); R06.00 Dyspnea, unspecified; G89.29 Other chronic pain; I11.0 Hypertensive heart disease with heart failure; I50.9 Heart failure, unspecified; I48.91 Unspecified atrial fibrillation; J43.9 Emphysema, unspecified; I25.10 Atherosclerotic heart disease of native coronary artery without angina pectoris; I25.2 Old myocardial infarction; Z90.49 Acquired absence of other specified parts of digestive tract
CPT/HCPCS: 71045; 93005; 99283

== ENCOUNTER 2018-08-10 13:05 | Emergency (ER) | payer SELFPAY ==
[~2018-08-10] VITALS: Ht 182.9 cm; Wt 114.7 kg
--- NOTE | 2018-08-10 13:20 | NUR ---
Pt arrives via [facility] to [facility]. Onset of CP & palpitations while sitting watching T.V. Hx of A-fib, MS & COPD. Pt has been off of all meds except baby ASA x 2 mo. due to lack of financial resources. At time of arrival pt is A&O x4, WPD, pain free, denies dyspnea. EKG performed, cardiac, NIBP & SPO2 monitors IP. HR 140's a-fib. Dr. Hopkins @ BS.
[2018-08-10] MEDS ORDERED: DILTIAZEM 5 MG/ML, 5ML IVPush STA (13:22)
[2018-08-10] MEDS ORDERED: DILTIAZEM 5 MG/ML, 5ML ONE (13:30)
--- NOTE | 2018-08-10 13:38 | NUR ---
After review of past charts, pt not candidate for electrical cardioversion. Cardizem IV given. Will monitor for effect.
[2018-08-10] MEDS ORDERED: ASPI-496 PO (13:40)
[2018-08-10 13:43] VITALS: BP 119/68
[2018-08-10 13:58] LABS: BASOPHILS # (AUTO) 0.02 x10^3/uL (0-0.1); BASOPHILS % (AUTO) 0 % (0-1); EOSINOPHILS # (AUTO) 0.08 x10^3/uL (0-0.4); EOSINOPHILS % (AUTO) 1 % (1-7); LYMPHOCYTES # (AUTO) 1.89 x10^3/uL (1-3.4); LYMPHOCYTES % (AUTO) 30 % (22-44); MD NO; MEAN CORPUSCULAR HGB CONC 32.8 g/dL (33.2-36.2); MEAN CORPUSCULAR VOLUME 91.4 fL (81-97); MEAN PLATELET VOLUME 8.5 fL (7.4-10.4); MONOCYTES # (AUTO) 0.35 x10^3/uL (0.2-0.8); MONOCYTES % (AUTO) 6 % (2-9); NEUTROPHILS # (AUTO) 4.06 x10^3/uL (1.8-6.8); NEUTROPHILS % (AUTO) 63 % (42-75); PLATELET COUNT 201 x10^3/uL (130-400); RED BLOOD COUNT 5.52 x10^6/uL (4.38-5.82); RED CELL DISTRIBUTION WIDTH 14.6 % (9.4-14.8)
[2018-08-10 14:02] LABS: ANION GAP 5 mmol/L (5-15); CALCIUM 9.7 mg/dL (8.5-10.1); CHLORIDE 111 mmol/L (98-107); CREATININE 0.69 mg/dL (0.7-1.3)
[2018-08-10 14:06] LABS: TROPONIN I < 0.015 ng/mL (0.000-0.045)
--- NOTE | 2018-08-10 14:16 | NUR ---
1350 REPORT FROM THAIS GAITAN. PT SITTING UP IN [facility], NAD NOTED. AWAKE/ALERT/TALKATIVE. DENIES NEEDS. AFIB ON MONITOR, RATE 70-85. PT PWD. 1400: RN ANSWERED CALL LIGHT. PT AGGRESSIVELY STATES "I WANT TO LEAVE. I'LL JUST SIGN AMA. I FEEL BETTER AND I DON'T LIKE HOSPITALS". PT HAS TAKEN SELF OFF MONITORING. ERP AWARE OF PT REQUEST. 1405: AMA SIGNED BY PT. PT AWARE OF S/S OF WORSENING CONDITION AND AGREES TO RETURN TO ED IF NECESSARY. IV DC'D. PT AMBULATED STEADILY TO DC WITH RN, DENIES CP/SOB/DIZZINESS. PT REFUSING WHEELCHAIR OR TAXI FOR TRANSPORT
== END 2018-08-10 14:21 | disposition home or self-care (01) ==
LOC: ED 14:15
DX: I48.0 Paroxysmal atrial fibrillation (principal); Z72.9 Problem related to lifestyle, unspecified; F17.200 Nicotine dependence, unspecified, uncomplicated; I50.9 Heart failure, unspecified; I25.10 Atherosclerotic heart disease of native coronary artery without angina pectoris; I25.2 Old myocardial infarction; J44.9 Chronic obstructive pulmonary disease, unspecified; I11.0 Hypertensive heart disease with heart failure; Z90.49 Acquired absence of other specified parts of digestive tract
CPT/HCPCS: 36415; 71045; 80048; 82040; 83735; 83880; 84484; 85025; 93005; 96374

== ENCOUNTER 2018-08-28 18:38 | Emergency (ER) | payer OTHER, MEDICARE ==
[~2018-08-28] VITALS: Ht 188 cm; Wt 100.0 kg
[2018-08-28 18:40] VITALS: BP 119/88
--- NOTE | 2018-08-28 18:40 | NUR ---
BIB [facility] W/ CO SUDDEN ONSET 12/11 L SIDED CP THIS AFTERNOON. ONSET WHILE WALKING. PAIN IS CONSTANT, SHARP, TENDER TO PALPATION AND WORSE WITH DEEP BREATHING. +NON-PRODUCTIVE COUGH/DIZZINESS; DENIES FEVER/N/DIAPHORESIS. PT PWD AND TALKATIVE WITH EASE. BP/SPO2/ECG MONITORING IN PLACE. AFIB ON MONITOR, RATE 110-150. HX OF SAME. NON-COMPLIANT WITH MEDICATIONS. 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 EKG COMPLETED UPON ARRIVAL.
[2018-08-28] MEDS ORDERED: DILTIAZEM 125 MG in SODIUM CHLORIDE 0.9% 100 ML IV SCH (18:46)
[2018-08-28] MEDS ORDERED: DILTIAZEM 5 MG/ML, 5ML ONE (18:53)
[2018-08-28] MEDS ORDERED: NITROGLYCERIN OINT 2%, 1GM TP ONE (18:54)
[2018-08-28] MEDS ORDERED: NITROGLYCERIN SINGLE TAB 0.4 MG SL PRN (19:00)
[2018-08-28] MEDS ORDERED: SODIUM CHLORIDE FLUSH 10ML SYR IVF ONE (19:00)
[2018-08-28] MEDS ORDERED: ASPIRIN 81 MG TABLET CHEW PO ONE (19:00)
[2018-08-28] MEDS ORDERED: DILTIAZEM 5 MG/ML, 5ML IV ONE (19:00)
[2018-08-28 19:06] LABS: BASOPHILS # (AUTO) 0.03 x10^3/uL (0-0.1); BASOPHILS % (AUTO) 0 % (0-1); EOSINOPHILS # (AUTO) 0.09 x10^3/uL (0-0.4); EOSINOPHILS % (AUTO) 1 % (1-7); LYMPHOCYTES # (AUTO) 2.39 x10^3/uL (1-3.4); LYMPHOCYTES % (AUTO) 38 % (22-44); MD NO; MEAN CORPUSCULAR HGB CONC 33.6 g/dL (33.2-36.2); MEAN CORPUSCULAR VOLUME 92.1 fL (81-97); MEAN PLATELET VOLUME 8.3 fL (7.4-10.4); MONOCYTES # (AUTO) 0.38 x10^3/uL (0.2-0.8); MONOCYTES % (AUTO) 6 % (2-9); NEUTROPHILS # (AUTO) 3.44 x10^3/uL (1.8-6.8); NEUTROPHILS % (AUTO) 54 % (42-75); PLATELET COUNT 185 x10^3/uL (130-400); RED BLOOD COUNT 5.17 x10^6/uL (4.38-5.82); RED CELL DISTRIBUTION WIDTH 14.9 % (9.4-14.8)
--- NOTE | 2018-08-28 19:11 | NUR ---
RN TO BEDSIDE TO MEDICATE PT. PT SPONTANEOUSLY CONVERTED TO SINUS RHYTHM. REPEAT EKG PROVIDED TO ERP. PT REPORTS RELIEF OF CP WITH CONVERSION. HOLD CARDIZEM AND NITRO PER ERP. BP/SPO2/ECG MONITORING REMAINS IN PLACE.
[2018-08-28 19:15] LABS: ALBUMIN 3.7 g/dL (3.4-5.0); ANION GAP 8 mmol/L (5-15); CALCIUM 9.2 mg/dL (8.5-10.1); CHLORIDE 110 mmol/L (98-107); CREATININE 0.73 mg/dL (0.7-1.3)
[2018-08-28 19:17] LABS: INTERNATIONAL NORMALIZED RATIO 0.95 (0.93-1.1)
[2018-08-28 19:18] LABS: TROPONIN I 0.024 ng/mL (0.000-0.045)
--- NOTE | 2018-08-28 20:00 | NUR ---
PT REMAINS IN NSR. DENIES CP AND IS REQUESTING DC. DC EDUCATION PROVIDED, PT DEMONSTRATES UNDERSTANDING. PT REFUSING WHEELCHAIR. PT AMBULATED STEADILY TO DC.
== END 2018-08-28 20:23 | disposition home or self-care (01) ==
LOC: ED 20:06
DX: I48.91 Unspecified atrial fibrillation (principal); R07.2 Precordial pain; I25.2 Old myocardial infarction; J44.9 Chronic obstructive pulmonary disease, unspecified; Z72.9 Problem related to lifestyle, unspecified; I11.0 Hypertensive heart disease with heart failure; I50.9 Heart failure, unspecified
CPT/HCPCS: 36415; 71045; 80048; 82040; 83880; 84484; 85025; 85610; 85730; 93005; 96374; 99291

== ENCOUNTER 2018-09-10 14:25 | Emergency (ER) | payer MEDICARE, OTHER ==
[~2018-09-10] VITALS: Ht 188 cm; Wt 92.5 kg
[2018-09-10] MEDS ORDERED: SODIUM CHLORIDE FLUSH 10ML SYR IVF ONE (15:00)
[2018-09-10] MEDS ORDERED: NITROGLYCERIN SINGLE TAB 0.4 MG SL PRN (15:00)
[2018-09-10] MEDS ORDERED: ASPIRIN 81 MG TABLET CHEW PO ONE (15:00)
[2018-09-10 15:18] LABS: BASOPHILS # (AUTO) 0.02 x10^3/uL (0-0.1); BASOPHILS % (AUTO) 0 % (0-1); EOSINOPHILS # (AUTO) 0.07 x10^3/uL (0-0.4); EOSINOPHILS % (AUTO) 1 % (1-7); LYMPHOCYTES # (AUTO) 2.04 x10^3/uL (1-3.4); LYMPHOCYTES % (AUTO) 34 % (22-44); MD NO; MEAN CORPUSCULAR HEMOGLOBIN 30.7 pg (27.5-34.5); MEAN CORPUSCULAR HGB CONC 33.6 g/dL (33.2-36.2); MEAN CORPUSCULAR VOLUME 91.4 fL (81-97); MONOCYTES # (AUTO) 0.38 x10^3/uL (0.2-0.8); MONOCYTES % (AUTO) 6 % (2-9); NEUTROPHILS # (AUTO) 3.53 x10^3/uL (1.8-6.8); NEUTROPHILS % (AUTO) 59 % (42-75); PLATELET COUNT 209 x10^3/uL (130-400); RED BLOOD COUNT 5.04 x10^6/uL (4.38-5.82); RED CELL DISTRIBUTION WIDTH 14.6 % (9.4-14.8)
[2018-09-10 15:28] LABS: ALBUMIN 3.8 g/dL (3.4-5.0); ANION GAP 7 mmol/L (5-15); CALCIUM 8.8 mg/dL (8.5-10.1); CHLORIDE 111 mmol/L (98-107)
[2018-09-10] MEDS ORDERED: NITROGLYCERIN SINGLE TAB 0.4 MG SL ONE (15:28)
--- NOTE | 2018-09-10 15:29 | NUR ---
PATIENT BIB [facility] STARTING TODAY AT 1330 AFTER A 2 HOUR WALK, 4 81MG ASA SELF ADMINISTERED. NITRO GIVEN EN ROUTE WITH NO RELIEF, 20 RT FOREARM ESTABLISHED BY [facility]. BS-131. HX OF A-FIB, HEART MURMUR, HTN, COPD, CAD, AND IA (19 PER PATIENT). EKG COMPLETED BY EMT, LABS DRAWN, XRAY COMPLETED. HOLD ASA PER ERP AT THIS TIME DUE TO SELF ADMINISTRATION OF ASA AT HOME, NITRO GIVEN PER ORDER, AWAITING RESULTS. VS UPDATED IN CHART,
[2018-09-10 15:31] LABS: INTERNATIONAL NORMALIZED RATIO 0.98 (0.93-1.1); PROTHROMBIN TIME 10.3 Seconds (9.6-11.5)
[2018-09-10] MEDS ORDERED: ACET-1600 PO (15:31)
[2018-09-10 15:32] LABS: TROPONIN I < 0.015 ng/mL (0.000-0.045)
[2018-09-10 16:07] VITALS: BP 154/74
--- NOTE | 2018-09-10 16:08 | NUR ---
RESULTS BACK, CHART UP FOR RECHECK. VS UPDATED IN CHART, PATIENT SITTING IN [place].
--- NOTE | 2018-09-10 16:08 | NUR ---
PATIENT REPORTS NITRO HELPED, DENIES PAIN AT THIS TIME.
--- NOTE | 2018-09-10 16:54 | NUR ---
Patient/Caregiver given discharge instructions and they have confirmed that they understand the instructions. Patient ambulatory with steady gait.
== END 2018-09-10 16:55 | disposition home or self-care (01) ==
LOC: ED 15:37
DX: R07.89 Other chest pain (principal); I11.0 Hypertensive heart disease with heart failure; I50.9 Heart failure, unspecified; I25.10 Atherosclerotic heart disease of native coronary artery without angina pectoris; J44.9 Chronic obstructive pulmonary disease, unspecified; I25.2 Old myocardial infarction; I48.91 Unspecified atrial fibrillation; F17.200 Nicotine dependence, unspecified, uncomplicated; Z90.49 Acquired absence of other specified parts of digestive tract; Z88.6 Allergy status to analgesic agent
CPT/HCPCS: 36415; 71045; 80048; 82040; 83880; 84484; 85025; 85610; 85730; 93005; 99284

== ENCOUNTER 2018-09-23 02:16 | Emergency (ER) | payer OTHER ==
[~2018-09-23] VITALS: Ht 188 cm; Wt 107.9 kg
[2018-09-23 03:27] VITALS: BP 126/74
== END 2018-09-23 03:40 | disposition home or self-care (01) ==
LOC: ED 03:29
DX: R07.89 Other chest pain (principal); I11.0 Hypertensive heart disease with heart failure; I25.10 Atherosclerotic heart disease of native coronary artery without angina pectoris; I48.91 Unspecified atrial fibrillation; E78.5 Hyperlipidemia, unspecified; F17.210 Nicotine dependence, cigarettes, uncomplicated; Z90.49 Acquired absence of other specified parts of digestive tract
CPT/HCPCS: 36415; 71045; 80053; 83880; 84484; 85025; 93005; 99284

== ENCOUNTER 2018-10-06 23:41 | Emergency (ER) | payer SELFPAY ==
[~2018-10-06] VITALS: Ht 188 cm; Wt 116.9 kg
[~2018-10-06 23:41] MED LIST changes: +ACET-1600 PO
[2018-10-06] MEDS ORDERED: ASPIRIN 81 MG TABLET CHEW ONE (23:55)
[2018-10-06] MEDS ORDERED: METOPROLOL TARTRATE 50 MG TABLET ONE (23:56)
[2018-10-07] MEDS ORDERED: METOPROLOL TARTRATE 50 MG TABLET PO ONE
[2018-10-07] MEDS ORDERED: SODIUM CHLORIDE FLUSH 10ML SYR IVF ONE
[2018-10-07] MEDS ORDERED: ASPIRIN 81 MG TABLET CHEW PO ONE
--- NOTE | 2018-10-07 00:15 | NUR ---
THE PT IS FULLY MONITORED.
[2018-10-07 00:35] LABS: BASOPHILS # (AUTO) 0.04 x10^3/uL (0-0.1); BASOPHILS % (AUTO) 1 % (0-1); EOSINOPHILS # (AUTO) 0.06 x10^3/uL (0-0.4); EOSINOPHILS % (AUTO) 1 % (1-7); LYMPHOCYTES # (AUTO) 2.77 x10^3/uL (1-3.4); LYMPHOCYTES % (AUTO) 42 % (22-44); MD NO; MEAN CORPUSCULAR HEMOGLOBIN 29.8 pg (27.5-34.5); MEAN CORPUSCULAR VOLUME 90.3 fL (81-97); MEAN PLATELET VOLUME 7.8 fL (7.4-10.4); MONOCYTES # (AUTO) 0.39 x10^3/uL (0.2-0.8); MONOCYTES % (AUTO) 6 % (2-9); NEUTROPHILS # (AUTO) 3.28 x10^3/uL (1.8-6.8); NEUTROPHILS % (AUTO) 50 % (42-75); PLATELET COUNT 206 x10^3/uL (130-400); RED BLOOD COUNT 5.13 x10^6/uL (4.38-5.82); RED CELL DISTRIBUTION WIDTH 14.7 % (9.4-14.8)
--- NOTE | 2018-10-07 01:21 | NUR ---
FLOAT RN: PT RESTING IN ROOM. NO ACUTE DISTRESS NOTED. CALL LIGHT IN PLACE. WILL CONTINUE TO MONITOR WHILE PRIMARY RN IS ON BREAK.
--- NOTE | 2018-10-07 01:34 | NUR ---
REPORT GIVEN TO JOAN RN
--- NOTE | 2018-10-07 01:36 | NUR ---
PT ROOFING LAYER LIGHT STATING HE WANTS TO LEAVE AMA. INFORMED.
[2018-10-07 01:47] LABS: ALBUMIN 3.7 g/dL (3.4-5.0); ANION GAP 10 mmol/L (5-15); CALCIUM 9.2 mg/dL (8.5-10.1); CHLORIDE 112 mmol/L (98-107); CREATININE 1.04 mg/dL (0.7-1.3)
--- NOTE | 2018-10-07 01:50 | NUR ---
" I WANT TO GO HOME. "
[2018-10-07 01:51] LABS: TROPONIN I < 0.015 ng/mL (0.000-0.045)
--- NOTE | 2018-10-07 02:01 | NUR ---
THE PT WAS ASKED TO WAIT FOR A SECOND EKG AND THE TROPONIN TO COME BACK, THE PT REFUSED. THE PT STATED "I WANT TO GO NOW". THE PT REFUSED TO ALLOW THE NURSE TO REMOVE THE MONITORING STICKERS. " I WILL TAKE THEM OFF WHEN I GET HOME!!". THE PT AMB OUT OF THE ED W/O DIFF.
[2018-10-07 02:03] VITALS: BP 136/85
--- NOTE | 2018-10-07 02:07 | NUR ---
THE PT SIGNED AN AMA. THE PT REFUSED TO STAY FOR THE SECOND EKG AND RESULTS OF THE TROPONIN.
== END 2018-10-07 02:09 | disposition home or self-care (01) ==
LOC: ED 23:59
DX: I48.0 Paroxysmal atrial fibrillation (principal); R07.2 Precordial pain; I11.0 Hypertensive heart disease with heart failure; I50.9 Heart failure, unspecified; I25.2 Old myocardial infarction; E78.5 Hyperlipidemia, unspecified; I25.10 Atherosclerotic heart disease of native coronary artery without angina pectoris; F17.200 Nicotine dependence, unspecified, uncomplicated; Z90.49 Acquired absence of other specified parts of digestive tract; Z72.9 Problem related to lifestyle, unspecified
CPT/HCPCS: 36415; 71045; 80048; 82040; 84484; 85025; 93005; 99284

== ENCOUNTER 2018-10-11 00:26 | Emergency (ER) | payer MEDICARE, OTHER ==
[~2018-10-11] VITALS: Ht 188 cm; Wt 115.4 kg
[2018-10-11 01:17] VITALS: BP 119/77
== END 2018-10-11 01:57 | disposition home or self-care (01) ==
LOC: ED 00:57
DX: I48.2 Chronic atrial fibrillation (principal); I25.2 Old myocardial infarction; I25.10 Atherosclerotic heart disease of native coronary artery without angina pectoris; I11.0 Hypertensive heart disease with heart failure; I50.9 Heart failure, unspecified; E78.5 Hyperlipidemia, unspecified; J44.9 Chronic obstructive pulmonary disease, unspecified; I48.91 Unspecified atrial fibrillation; Z90.49 Acquired absence of other specified parts of digestive tract
CPT/HCPCS: 36415; 71045; 80048; 82040; 83880; 84484; 85025; 93005; 96374

== ENCOUNTER 2019-02-05 19:59 | Emergency (ER) ==
[~2019-02-05] VITALS: Ht 188 cm; Wt 107.0 kg
[~2019-02-05 19:59] MED LIST changes: +AZIT500T10 PO; -AZIT500T5 PO
--- NOTE | 2019-02-05 20:14 | NUR ---
BIB [facility]. C/O CP, 10/10 LEFT CHEST, THAT BEGAN AT 1700. FAMILY SERVICE CENTER DIRECTOR 324 ASA AND 4 NITRO. USUALLY TAKES METOPROLOL, BUT HASN'T HAD ANY IN A WHILE. CONNECTED TO MONITORING. EKG DONE. CALL LIGHT IN REACH. AWAITING ORDERS AT THIS TIME.
[2019-02-05] MEDS ORDERED: DILTIAZEM 5 MG/ML, 5ML ONE (20:45)
[2019-02-05] MEDS ORDERED: DILTIAZEM 5 MG/ML, 5ML IV ONE (21:00)
[2019-02-05] MEDS ORDERED: SODIUM CHLORIDE FLUSH 10ML SYR IVF ONE (21:00)
[2019-02-05 21:24] LABS: BASOPHILS # (AUTO) 0.04 x10^3/uL (0-0.1); BASOPHILS % (AUTO) 1 % (0-1); EOSINOPHILS # (AUTO) 0.08 x10^3/uL (0-0.4); EOSINOPHILS % (AUTO) 1 % (1-7); LYMPHOCYTES # (AUTO) 2.75 x10^3/uL (1-3.4); LYMPHOCYTES % (AUTO) 40 % (22-44); MD NO; MEAN CORPUSCULAR HEMOGLOBIN 30.7 pg (27.5-34.5); MEAN CORPUSCULAR HGB CONC 33.1 g/dL (33.2-36.2); MEAN CORPUSCULAR VOLUME 92.5 fL (81-97); MEAN PLATELET VOLUME 8.3 fL (7.4-10.4); MONOCYTES # (AUTO) 0.36 x10^3/uL (0.2-0.8); MONOCYTES % (AUTO) 5 % (2-9); NEUTROPHILS # (AUTO) 3.56 x10^3/uL (1.8-6.8); NEUTROPHILS % (AUTO) 52 % (42-75); PLATELET COUNT 180 x10^3/uL (130-400); RED BLOOD COUNT 5.07 x10^6/uL (4.38-5.82); RED CELL DISTRIBUTION WIDTH 14.6 % (9.4-14.8)
[2019-02-05 21:36] LABS: ALANINE AMINOTRANSFERASE 28 U/L (12-78); ALBUMIN 3.7 g/dL (3.4-5.0); ANION GAP 6 mmol/L (5-15); CALCIUM 9.7 mg/dL (8.5-10.1); CHLORIDE 107 mmol/L (98-107); CREATININE 0.97 mg/dL (0.7-1.3)
[2019-02-05 21:40] LABS: ALKALINE PHOSPHATASE 96 U/L (45-117); BILIRUBIN,TOTAL 0.3 mg/dL (0.2-1.0); TROPONIN I 0.059 ng/mL (0.000-0.045)
--- NOTE | 2019-02-05 22:08 | NUR ---
PT RANG CALL LIGHT AND ASKED "TO BRING ME AMA PAPERWORK", WHEN ASKED WHY HE WANT TO LEAVE PT SAID "BECAUSE I JUST WANT TO GO HOME". PROVIDER NOTIFIED BY RN. PROVIDER EDUCATED PT ABOUT PT'S LAB RESULTS INCLUDING ELEVATED TROPONIN AND A-FIB RVR CARDIAC RYTHM AND THE CONSEQUENCES UP TO BY LEAVING AMA. PT SAID "HE PRAYS AND THAT HE DOES NOT CARE IF HE DIES AND THATS FINAL, GET ME THE AMA PAPERWORK, I WANT TO LEAVE NOW!" PT PROVIDED AMA PAPERWORK THAT PT SIGN AND PT AMBULATED TO DISCHARGE DESK.
[2019-02-05 22:17] VITALS: BP 109/58
== END 2019-02-05 22:20 | disposition left against medical advice (07) ==
LOC: ED 20:46
DX: I48.20 Chronic atrial fibrillation, unspecified (principal); I20.0 Unstable angina; F17.200 Nicotine dependence, unspecified, uncomplicated; J44.9 Chronic obstructive pulmonary disease, unspecified; I11.0 Hypertensive heart disease with heart failure; I50.9 Heart failure, unspecified; I25.2 Old myocardial infarction; E11.9 Type 2 diabetes mellitus without complications; E78.5 Hyperlipidemia, unspecified; Z90.49 Acquired absence of other specified parts of digestive tract
CPT/HCPCS: 36415; 71045; 80053; 83880; 84484; 85025; 93005; 96374

== ENCOUNTER 2019-04-24 03:46 | Emergency (ER) | payer SELFPAY ==
[~2019-04-24] VITALS: Ht 188 cm; Wt 120.0 kg
[2019-04-24 03:51] VITALS: BP 143/80
[2019-04-24] MEDS ORDERED: DILTIAZEM 5 MG/ML, 5ML IV ONE (04:00)
[2019-04-24] MEDS ORDERED: DILTIAZEM 5 MG/ML, 5ML ONE (04:07)
--- NOTE | 2019-04-24 04:17 | NUR ---
pt medicated per mar lab at bedside
[2019-04-24 04:32] LABS: BASOPHILS # (AUTO) 0.02 x10^3/uL (0-0.1); BASOPHILS % (AUTO) 0 % (0-1); EOSINOPHILS # (AUTO) 0.08 x10^3/uL (0-0.4); EOSINOPHILS % (AUTO) 2 % (1-7); LYMPHOCYTES # (AUTO) 2.28 x10^3/uL (1-3.4); LYMPHOCYTES % (AUTO) 42 % (22-44); MD NO; MEAN CORPUSCULAR HEMOGLOBIN 30.6 pg (27.5-34.5); MEAN CORPUSCULAR HGB CONC 33.5 g/dL (33.2-36.2); MEAN CORPUSCULAR VOLUME 91.4 fL (81-97); MEAN PLATELET VOLUME 8.1 fL (7.4-10.4); MONOCYTES # (AUTO) 0.31 x10^3/uL (0.2-0.8); MONOCYTES % (AUTO) 6 % (2-9); NEUTROPHILS # (AUTO) 2.76 x10^3/uL (1.8-6.8); NEUTROPHILS % (AUTO) 51 % (42-75); PLATELET COUNT 210 x10^3/uL (130-400); RED BLOOD COUNT 4.97 x10^6/uL (4.38-5.82); RED CELL DISTRIBUTION WIDTH 15.1 % (9.4-14.8)
[2019-04-24 04:44] LABS: ALBUMIN 3.7 g/dL (3.4-5.0); ANION GAP 7 mmol/L (5-15); CALCIUM 9.1 mg/dL (8.5-10.1); CHLORIDE 112 mmol/L (98-107); CREATININE 0.64 mg/dL (0.7-1.3)
[2019-04-24 04:47] LABS: TROPONIN I 0.023 ng/mL (0.000-0.045)
--- NOTE | 2019-04-24 05:18 | NUR ---
PT WANTING TO LEAVE, PT PROVIDED AMA PAPERWORK AND ASKED IF HE NEEDED ANYTHING FOR SAFE DISCHARGE/ TRANSPORT HOME. PT DECLINES NEEDS.
== END 2019-04-24 05:19 | disposition left against medical advice (07) ==
LOC: ED 04:50
DX: R00.2 Palpitations (principal); I48.91 Unspecified atrial fibrillation; I11.0 Hypertensive heart disease with heart failure; I50.9 Heart failure, unspecified; I25.2 Old myocardial infarction; I25.10 Atherosclerotic heart disease of native coronary artery without angina pectoris; E78.5 Hyperlipidemia, unspecified; E11.9 Type 2 diabetes mellitus without complications; J44.9 Chronic obstructive pulmonary disease, unspecified; F17.200 Nicotine dependence, unspecified, uncomplicated; Z90.49 Acquired absence of other specified parts of digestive tract
CPT/HCPCS: 36415; 71045; 80048; 82040; 83880; 84484; 85025; 93005; 99291

== ENCOUNTER 2019-08-28 03:59 | Emergency (ER) | payer MEDICARE ==
[~2019-08-28] VITALS: Ht 188 cm; Wt 118.4 kg
[2019-08-28] MEDS ORDERED: ASPIRIN 81 MG TABLET EC ONE (04:26)
[2019-08-28] MEDS ORDERED: DILTIAZEM 5 MG/ML, 5ML ONE (04:26)
[2019-08-28] MEDS ORDERED: DILTIAZEM 5 MG/ML, 5ML IV ONE (04:30)
[2019-08-28] MEDS ORDERED: ASPIRIN 81 MG TABLET CHEW PO ONE (04:30)
--- NOTE | 2019-08-28 04:38 | NUR ---
pt rpeoerts that he had episode of afib and chest pain this morning and came to er. currently sleeping quietly.
--- NOTE | 2019-08-28 04:50 | NUR ---
pt sleeping quietly at this time, resp rate even and regular, remains a flutter on the monior.
--- NOTE | 2019-08-28 05:07 | NUR ---
Pt remains in a flutter, report to Rudy PLASCENCIA.
[2019-08-28 05:10] LABS: BASOPHILS # (AUTO) 0.04 x10^3/uL (0-0.1); BASOPHILS % (AUTO) 1 % (0-1); EOSINOPHILS # (AUTO) 0.05 x10^3/uL (0-0.4); EOSINOPHILS % (AUTO) 1 % (1-7); LYMPHOCYTES # (AUTO) 1.89 x10^3/uL (1-3.4); LYMPHOCYTES % (AUTO) 29 % (22-44); MD NO; MEAN CORPUSCULAR HEMOGLOBIN 30.2 pg (27.5-34.5); MEAN CORPUSCULAR HGB CONC 33.4 g/dL (33.2-36.2); MEAN CORPUSCULAR VOLUME 90.3 fL (81-97); MEAN PLATELET VOLUME 8.9 fL (7.4-10.4); MONOCYTES # (AUTO) 0.47 x10^3/uL (0.2-0.8); MONOCYTES % (AUTO) 7 % (2-9); NEUTROPHILS # (AUTO) 4.11 x10^3/uL (1.8-6.8); NEUTROPHILS % (AUTO) 63 % (42-75); PLATELET COUNT 192 x10^3/uL (130-400); RED BLOOD COUNT 4.67 x10^6/uL (4.38-5.82); RED CELL DISTRIBUTION WIDTH 15.3 % (9.4-14.8)
[2019-08-28 05:20] LABS: ALBUMIN 3.5 g/dL (3.4-5.0); ANION GAP 7 mmol/L (5-15); CALCIUM 8.7 mg/dL (8.5-10.1); CHLORIDE 108 mmol/L (98-107); CREATININE 0.84 mg/dL (0.7-1.3)
[2019-08-28 05:23] LABS: TROPONIN I 0.044 ng/mL (0.000-0.045)
--- NOTE | 2019-08-28 06:22 | NUR ---
re-evaluation done. patient for admit. states he will stay this time.
[2019-08-28] MEDS ORDERED: GUAIFENESIN/DM 200-20MG, 10ML UDC PO PRN (07:00)
[2019-08-28] MEDS ORDERED: LACTATED RINGERS 1,000 ML IV ONE (07:00)
[2019-08-28] MEDS ORDERED: POLYETHYLENE GLYCOL 17 GM PACKET PO PRN (07:00)
[2019-08-28] MEDS ORDERED: BACLOFEN 10 MG TABLET PO PRN (07:00)
[2019-08-28] MEDS ORDERED: LABETALOL 5MG/ML, 20ML IVPush PRN (07:00)
[2019-08-28] MEDS ORDERED: hydrALAzine 20 MG/ML, 1ML IVPush PRN (07:00)
[2019-08-28] MEDS ORDERED: BUTALB/APAP/CAFFEINE 50MG/325MG/40MG PO PRN (07:00)
[2019-08-28] MEDS ORDERED: GUAIFENESIN/COD200MG-20MG/10ML LIQUID PO PRN (07:00)
[2019-08-28] MEDS ORDERED: MELATONIN 5 MG TABLET PO PRN (07:00)
--- NOTE | 2019-08-28 07:01 | NUR ---
report to THAIS Sunshine
[2019-08-28 07:31] VITALS: BP 111/63
--- NOTE | 2019-08-28 07:32 | NUR ---
REPORT RECEIVED FROM GEORGINA PLASCENCIA. PT SLEEPING IN BED, EASY TO ROUSE. PT TO BE [facility] ADMIT, PT AWARE OF POC. WILL MEDICATED PER ORDERS. PT REMAINS ON MONITORS, VSS. CONT TO MONITOR.
[2019-08-28 07:41] LABS: FREE T4 (FREE THYROXINE) 1.18 ng/dL (0.76-1.46)
--- NOTE | 2019-08-28 07:42 | NUR ---
PHARMACY CALLED ABOUT HEPARIN GTT PT IS >115KG, PHARMACY TO DECIDE DOSE. WILL START WHEN ORDER READY.
[2019-08-28] MEDS ORDERED: HEPARIN 25,000 UNITS/250ML PMX 250 ML IV PRN (08:00)
[2019-08-28] MEDS ORDERED: HEPARIN 5,000 UNITS/ML, 1ML IV ONE (08:00)
[2019-08-28] MEDS ORDERED: HEPARIN 5,000 UNITS/ML, 1ML IV PRN (08:00)
--- NOTE | 2019-08-28 08:16 | NUR ---
ANTI XA LAB DRAW ORDERED PER DR. TANNER VERBAL T/O.
--- NOTE | 2019-08-28 08:48 | NUR ---
PT WANTS TO LEAVE AMA, STATES "I DONT WANT TO BE IN THIS PLACE ANYMORE." DR. TANNER AT BEDSIDE TO SPEAK WITH PT, PT STILL WANTS TO LEAVE AMA, ADMITTING MD AWARE. PT IV REMOVED, PT HAS ALL OWN BELONGINGS. PT SIGNED AMA PAPERWORK. PT AWARE OF POTENTIAL RISKS WITH LEAVING AMA.
[2019-08-28] MEDS ORDERED: DILTIAZEM 30 MG TABLET PO SCH (09:00)
[2019-08-28] MEDS ORDERED: SENNA/DOCUSATE TABLET PO SCH (09:00)
== END 2019-08-28 08:59 | disposition left against medical advice (07) ==
LOC: ED 05:24 → UNDOADMIN 06:37 → EDIP 06:37 → ED 08:59
DX: I48.20 Chronic atrial fibrillation, unspecified (principal); R07.89 Other chest pain; R00.0 Tachycardia, unspecified; Z91.19 Patient's noncompliance with other medical treatment and regimen; I11.0 Hypertensive heart disease with heart failure; I50.9 Heart failure, unspecified; E11.9 Type 2 diabetes mellitus without complications; J44.9 Chronic obstructive pulmonary disease, unspecified; I48.91 Unspecified atrial fibrillation; I25.2 Old myocardial infarction; E78.5 Hyperlipidemia, unspecified; F17.200 Nicotine dependence, unspecified, uncomplicated; Z90.49 Acquired absence of other specified parts of digestive tract
CPT/HCPCS: 36415; 71045; 80048; 82040; 83735; 83880; 84439; 84443; 84481; 84484; 85025; 85520; 92960; 93005; 96374; 99291

== ENCOUNTER 2019-08-30 16:43 | Emergency (ER) | payer SELFPAY ==
--- NOTE | 2019-08-30 16:47 | NUR ---
FIBER LOCKING SUPERVISOR: [facility], PT TO ROOM AND GOT UP FROM [facility] WHILE EMS WAS GIVING RPT TO RN AND WALKED OUT.
== END 2019-08-30 16:49 ==
LOC: ED 16:43
DX: M25.579 Pain in unspecified ankle and joints of unspecified foot (principal); Z53.21 Procedure and treatment not carried out due to patient leaving prior to being seen by health care provider

== ENCOUNTER 2019-09-26 15:06 | Emergency (ER) | payer MEDICARE, OTHER ==
[~2019-09-26] VITALS: Ht 182.9 cm; Wt 100.0 kg
[2019-09-26 15:31] VITALS: BP 116/74
== END 2019-09-26 15:37 | disposition left against medical advice (07) ==
LOC: ED 15:35
DX: I48.20 Chronic atrial fibrillation, unspecified (principal); R07.2 Precordial pain; I49.3 Ventricular premature depolarization; I11.9 Hypertensive heart disease without heart failure; J44.9 Chronic obstructive pulmonary disease, unspecified; E78.5 Hyperlipidemia, unspecified
CPT/HCPCS: 93005; 99283

== ENCOUNTER 2019-10-06 22:26 | Emergency (ER) | payer SELFPAY ==
[~2019-10-06] VITALS: Ht 188 cm; Wt 111.8 kg
[2019-10-06 23:51] VITALS: BP 151/82
== END 2019-10-06 23:53 | disposition home or self-care (01) ==
LOC: ED 23:48
DX: M25.561 Pain in right knee (principal); M25.571 Pain in right ankle and joints of right foot; Z72.9 Problem related to lifestyle, unspecified; F17.200 Nicotine dependence, unspecified, uncomplicated; I50.9 Heart failure, unspecified; E11.9 Type 2 diabetes mellitus without complications; I25.2 Old myocardial infarction; E78.5 Hyperlipidemia, unspecified; I25.10 Atherosclerotic heart disease of native coronary artery without angina pectoris; J44.9 Chronic obstructive pulmonary disease, unspecified; I48.91 Unspecified atrial fibrillation; Z90.49 Acquired absence of other specified parts of digestive tract
CPT/HCPCS: 99283